=== PATIENT | female | born 1940 | race Caucasian/White ===

== ENCOUNTER → 2016-08-27 | Outpatient (CLI) | payer MEDICARE, BC ==
--- NOTE | 2016-08-30 08:40 | BD ---
EXAMINATION TYPE: MG DEXA axial skeleton. DATE OF EXAM: 08/27/2016 COMPARISON: CLINICAL HISTORY: 75-year-old female postmenopausal screening Height: 62.75 Weight: 200 FRAX RISK QUESTIONS: Alcohol (3 or more units per day): no Family History (Parent hip fracture): no Glucocorticoids (More than 3mos): not now (Ex: prednisone, prednisolone, methylprednisolone, dexamethasone, and hydrocortisone). History of Fracture in Adulthood: no Secondary Osteoporosis: 1. Type 1 Diabetes: no 2. Hyperthyroidism: no 3. Menopause before 45: no 4. Malnutrition: no 5. Chronic liver disease: no Rheumatoid Arthritis: patient thinks yes, but does not take medication for this Current Tobacco Use: no RISK FACTORS HISTORY OF: Family History of Osteoporosis: no Active: yes Diet low in dairy products/other sources of calcium: somewhat Postmenopausal woman: yes Take estrogen and/or progesterone medications: not now How long: hormonal contraceptives when younger for about one year Lost more than 2 inches in height since high school: no Frequent falls: no Poor Health: no Hyperparathyroidism: no Adrenal Insufficiency: no MEDICATIONS: Prednisone or other steroids: no Thyroid Medications: yes Which medication: generic synthroid How Long: since about age 32 Osteoporosis Medications: no Additional Medications: calcium & vitamin D, blood pressure meds EXAM MEASUREMENTS: Bone mineral densitometry was performed using the [employer] System. Bone mineral density as measured about the Lumbar spine is: ----- L1-L4(G/cm2): 1.099 T Score Values are as follows: ----- L2: -0.9 ----- L3: -0.8 ----- L4: -1.0 ----- L1-L4: -0.7 Bone mineral density has: Decreased -2.4% since study of: 08/23/2014 Bone mineral density about the R hip (g/cm2): 0.754 Bone mineral density about the L hip (g/cm2): 0.768 T Score values are as follows: -----R Neck: -2.0 -----L Neck: -1.9 -----R Total: -0.7 -----L Total: -0.3 Bone mineral density has: Decreased -2.2% since study of: 08/23/2014 IMPRESSION: Osteopenia as indicated by T score values in both hips. There is slightly increased risk of fracture and the patient may be considered for treatment. Re-Screen 2-5 years. NOTE: T-SCORE=SD OF THE YOUNG ADULT MEAN.
--- NOTE | 2016-09-01 08:24 | MM ---
Reason for exam: screening (asymptomatic). Last mammogram was performed 2 years ago. History: Patient is postmenopausal. Benign right US cyst aspiration of the right breast, June 05, 2008. Took hormonal contraceptives for 1 year beginning at age 22. Physical Findings: A clinical breast exam by your physician is recommended on an annual basis and results should be correlated with mammographic findings. MG 3D Screening Mammo W/Cad Bilateral CC and MLO view(s) were taken. Prior study comparison: August 23, 2014, bilateral MG screening mammo w CAD. There are scattered fibroglandular densities. Finding: There is a 7 mm circumscribed round mass located 4 cm from the nipple in the upper outer quadrant of the right breast. Increase in size since August 23, 2014. ASSESSMENT: Incomplete: need additional imaging evaluation, BI-RAD 0 RECOMMENDATION: Ultrasound of the right breast. [facility] will attempt to contact patient to return for ultrasound.
== END | disposition home or self-care (01) ==
LOC: RADMAMWWP 10:05
PROVIDERS: ATTEND Family Medicine
DX: Z12.31 Encounter for screening mammogram for malignant neoplasm of breast (principal); M85.851 Other specified disorders of bone density and structure, right thigh; M85.852 Other specified disorders of bone density and structure, left thigh; Z78.0 Asymptomatic menopausal state
CPT/HCPCS: 77080; 77063; G0202

== ENCOUNTER → 2016-09-13 | Outpatient (CLI) | payer MEDICARE ==
--- NOTE | 2016-09-13 11:25 | USB ---
Reason for exam: additional evaluation requested from abnormal screening. History: Patient is postmenopausal. Benign right US cyst aspiration of the right breast, June 05, 2008. Took hormonal contraceptives for 1 year beginning at age 22. Physical Findings: Nurse did not find any significant physical abnormalities on exam. US Breast Workup Limited RT Right breast ultrasound demonstrates a 0.6 x 0.3 x 0.6cm oval, cystic lesion at 9 o'clock. These results were verbally communicated with the patient and result sheet given to the patient on 09/13/16. ASSESSMENT: Benign, BI-RAD 2 RECOMMENDATION: Return to routine screening mammogram schedule for both breasts.
== END | disposition home or self-care (01) ==
LOC: RADUSWWP 10:22
PROVIDERS: ATTEND Family Medicine
DX: R92.8 Other abnormal and inconclusive findings on diagnostic imaging of breast (principal)

== ENCOUNTER → 2018-06-09 | Day surgery (SDC) | payer MEDICARE ==
[2018-06-07 13:36] VITALS: BMI 34.3
[~2018-06-09] MED LIST: LACTATED RINGERS 1,000 ML IV SCH; LIDOCAINE 1% 20 ML VIAL (10MG/ML) FOR IV START INTRADERMA ONE; PROPOFOL 10 MG/ML 20 ML VIAL IV ONE
--- NOTE | 2018-06-09 06:02 | P.GSHP ---
History of Present Illness H&P Date: 06/09/18 CHIEF COMPLAINT: GERD HISTORY OF PRESENT ILLNESS: The patient is a 77-year-old female who presents reports gastroesophageal reflux disease. Upper endoscopy was offered for further evaluation and management. PAST MEDICAL HISTORY: Please see list. PAST SURGICAL HISTORY: Please see list. MEDICATIONS: Please see list. ALLERGIES: Please see list. SOCIAL HISTORY: No illicit drug use FAMILY HISTORY: No reports of Crohn disease or ulcerative colitis. REVIEW OF ORGAN SYSTEMS: CONSTITUTIONAL: No reports of fevers or chills. GI: Denies any blood in stools or constipation. PHYSICAL EXAM: VITAL SIGNS: Stable GENERAL: Well-developed and pleasant in no acute distress. HEENT: No scleral icterus. Extraocular movements grossly intact. Moist buccal mucosa. NECK: Supple without lymphadenopathy. CHEST: Unlabored respirations. Equal bilateral excursions. CARDIOVASCULAR: Regular rate and rhythm. Distal 2+ pulses. ABDOMEN: Soft, nondistended. MUSCULOSKELETAL: No clubbing, cyanosis, or edema. ASSESSMENT: 1. Gastroesophageal reflux disease PLAN: 1. Recommend proceeding with an upper endoscopy Past Medical History Past Medical History: GERD/Reflux, Hypertension, Thyroid Disorder History of Any Multi-Drug Resistant Organisms: None Reported Past Surgical History: Hysterectomy, Joint Replacement, Orthopedic Surgery Additional Past Surgical History / Comment(s): RT TOTAL KNEE, FELIX CATARACTS, RT LEG VARICOSE VEIN, LEFT SHOULDER, D&C Past Anesthesia/Blood Transfusion Reactions: No Reported Reaction Smoking Status: Former smoker Medications and Allergies Home Medications Medication Instructions Recorded Confirmed Type Aspirin [Adult Low Dose Aspirin EC] 81 mg PO DAILY 06/07/18 06/07/18 History Calcium Carbonate [Calcium] 600 mg PO BID 06/07/18 06/07/18 History Cholecalciferol [Vitamin D3] 1,000 unit PO DAILY 06/07/18 06/07/18 History Levothyroxine Sodium [Synthroid] 75 mcg PO DAILY 06/07/18 06/07/18 History Losartan [Cozaar] 50 mg PO QAM 06/07/18 06/07/18 History Metoprolol Tartrate 25 mg PO HS 06/07/18 06/07/18 History Multivitamins, Thera [Multivitamin 1 tab PO DAILY 06/07/18 06/07/18 History (formulary)] [place]-3/Dha/Epa/Fish Oil [Fish Oil 1 each PO BID 06/07/18 06/07/18 History 500 mg Softgel] Pantoprazole Sodium 40 mg PO DAILY 06/07/18 06/07/18 History Allergies Allergy/AdvReac Type Severity Reaction Status Date / Time No Known Allergies Allergy Verified 06/07/18 13:27
[2018-06-09 10:05] VITALS: TEMP 96.5
--- NOTE | 2018-06-09 10:51 | P.PCN ---
Date of Procedure: 06/09/18 Description of Procedure: PREOPERATIVE DIAGNOSIS: Gastroesophageal reflux disease. POSTOPERATIVE DIAGNOSIS: Gastritis. Gastroesophageal reflux disease. Diaphragmatic hiatal hernia OPERATION: Esophagogastroduodenoscopy with biopsies along antrum. SURGEON: Lianne Modi MD ANESTHESIA: MAC. INDICATIONS: The patient is a 77-year-old female who presents with a history of reflux disease. Benefits and risks of the procedure were described. Informed consent was obtained. DESCRIPTION: The patient was brought into the endoscopy suite and laid in the left lateral decubitus position. An Olympus gastroscope was passed along the posterior oropharynx down to the distal esophagus where the squamocolumnar junction was encountered at 35 cm from the incisors. The stomach was entered and no bile reflux was found. Additional findings are listed below. Biopsies with cold forceps were obtained of the antrum. The first through third portion of the duodenum was examined and unremarkable. Retroflexion of the scope confirmed Hill grade 4 lower esophageal valve. The squamocolumnar junction demonstrated LA grade B erosive esophagitis. The stomach was desufflated. The patient tolerated the procedure well. FINDINGS: Squamocolumnar junction 35 cm from the incisors. Diaphragmatic hiatus at 38 cm. Hiatal hernia, 3 cm, paraesophageal hiatal hernia type II Hill grade 4 lower esophageal valve. LA grade B erosive esophagitis. No active duodenitis. Chronic gastritis RECOMMENDATIONS: Upper endoscopy as needed. Plan - Discharge Summary Discharge Rx Participant: No New Discharge Prescriptions: No Action Cholecalciferol [Vitamin D3] 1,000 unit PO DAILY Losartan [Cozaar] 50 mg PO QAM Multivitamins, Thera [Multivitamin (formulary)] 1 tab PO DAILY Levothyroxine Sodium [Synthroid] 75 mcg PO DAILY Pantoprazole Sodium 40 mg PO DAILY [place]-3/Dha/Epa/Fish Oil [Fish Oil 500 mg Softgel] 1 each PO BID Metoprolol Tartrate 25 mg PO HS Calcium Carbonate [Calcium] 600 mg PO BID Aspirin [Adult Low Dose Aspirin EC] 81 mg PO DAILY Discharge Medication List Aspirin [Adult Low Dose Aspirin EC] 81 mg PO DAILY 06/07/18 [History] Calcium Carbonate [Calcium] 600 mg PO BID 06/07/18 [History] Cholecalciferol [Vitamin D3] 1,000 unit PO DAILY 06/07/18 [History] Levothyroxine Sodium [Synthroid] 75 mcg PO DAILY 06/07/18 [History] Losartan [Cozaar] 50 mg PO QAM 06/07/18 [History] Metoprolol Tartrate 25 mg PO HS 06/07/18 [History] Multivitamins, Thera [Multivitamin (formulary)] 1 tab PO DAILY 06/07/18 [History] [place]-3/Dha/Epa/Fish Oil [Fish Oil 500 mg Softgel] 1 each PO BID 06/07/18 [History] Pantoprazole Sodium 40 mg PO DAILY 06/07/18 [History] Follow up Appointment(s)/Referral(s): Lianne Modi MD [STAFF PHYSICIAN] - 07/04/18 Patient Instructions/Handouts: *Surgery [facility] - (Anesthesia) Endoscopy Discharge Instructions, Hiatal Hernia (DC), Upper Endoscopy (DC) Discharge Disposition: HOME SELF-CARE
[2018-06-09 11:04] VITALS: BP 143/60; PULSE 70; RESP 16
== END | disposition home or self-care (01) ==
LOC: ORWHC2ENDO 09:42
PROVIDERS: ATTEND Surgery Plastic and Reconstructive Surgery
DX: K21.0 Gastro-esophageal reflux disease with esophagitis (principal); K29.50 Unspecified chronic gastritis without bleeding; K44.9 Diaphragmatic hernia without obstruction or gangrene; Z79.82 Long term (current) use of aspirin; I10 Essential (primary) hypertension; E07.9 Disorder of thyroid, unspecified; Z96.651 Presence of right artificial knee joint; Z98.42 Cataract extraction status, left eye; Z98.41 Cataract extraction status, right eye; Z87.891 Personal history of nicotine dependence; Z79.890 Hormone replacement therapy; Z79.899 Other long term (current) drug therapy
CPT/HCPCS: 88305; 43239; J2704

== ENCOUNTER → 2019-01-04 | Outpatient (CLI) | payer MEDICARE ==
--- NOTE | 2019-01-04 12:09 | BD ---
EXAMINATION TYPE: Axial Bone Density DATE OF EXAM: 01/04/2019 COMPARISON: 08.27.2016 CLINICAL HISTORY: 78 YR OLD FEMALE...ICD-10 CODE: Z78.0 POST MENOPAUSAL Height: 62.2 Weight: 229 FRAX RISK QUESTIONS: Family History (Parent hip fracture): NO FX RISK FACTORS HISTORY OF: Surgery to Spine FALL INJURY TO BACK, NO FX NOTED Family History of Osteoporosis: YES, MOTHER NO FX Postmenopausal woman: YES AT AGE 52 Lost more than 2 inches in height since high school: YES Hyperparathyroidism: NO Adrenal Insufficiency: NO MEDICATIONS: STEROIDS FOR COPD Thyroid Medications: YES, SYNTHROID, 20+ YRS Additional Medications: BP MEDS, REFLUX MEDS, CALCIUM AND VIT D, OSTEOARTHRITIS, STEROIDS FOR COPD Additional History: RT KNEE REPLACEMENT, EXAM MEASUREMENTS: Bone mineral densitometry was performed using the [employer] System. Bone mineral density as measured about the Lumbar spine is: ----- L1-L4(G/cm2): 1.358 T Score Values are as follows: ----- L1: 2.5 ----- L2: 2.2 ----- L3: 1.9 ----- L4: 0.0 ----- L1-L4: 1.5 Bone mineral density has: Increased 22.7% since study of: 08.27.2016 Bone mineral density about the R hip (g/cm2): 0.961 Bone mineral density about the L hip (g/cm2): 1.068 T Score values are as follows: -----R Neck: -1.7 -----L Neck: -1.4 -----R Total: -0.4 -----L Total: 0.5 Bone mineral density has: Increased 7.3% since study of: 08.27.2016 FRAX%s: THERE IS A 16.8% CHANCE FOR A MAJOR OSTEOPOROTIC FX AND A 4.1% FOR HIP.....PROBABILITY FOR FX IN 10 YRS TIME IMPRESSION: Osteopenia (T Score between -2.5 and -1). There is slightly increased risk of fracture and the patient may be considered for treatment. Re-Screen 2-5 years. NOTE: T-SCORE=SD OF THE YOUNG ADULT MEAN.
--- NOTE | 2019-01-05 11:56 | MM ---
Reason for exam: screening (asymptomatic). Last mammogram was performed 2 years and 4 months ago. History: Patient is postmenopausal. Benign right US cyst aspiration of the right breast, June 05, 2008. Took hormonal contraceptives for 1 year beginning at age 22. Physical Findings: A clinical breast exam by your physician is recommended on an annual basis and results should be correlated with mammographic findings. MG 3D Screening Mammo W/Cad Bilateral CC and MLO view(s) were taken. Prior study comparison: August 27, 2016, bilateral MG 3d screening mammo w/cad. August 23, 2014, bilateral MG screening mammo w CAD. The breast tissue is heterogeneously dense. This may lower the sensitivity of mammography. There is a 1.0 x 0.8cm spiculated left upper outer quadrant posterior depth mass 9-10cm from nipple. No suspicious abnormality on the right breast. ASSESSMENT: Incomplete: need additional imaging evaluation, BI-RAD 0 RECOMMENDATION: Special view mammogram and ultrasound of the left breast. [facility] will attempt to contact patient to return for supplemental views and ultrasound.
== END | disposition home or self-care (01) ==
LOC: RADMAMWWP 10:25
PROVIDERS: ATTEND Family Medicine
DX: Z12.31 Encounter for screening mammogram for malignant neoplasm of breast (principal); M85.80 Other specified disorders of bone density and structure, unspecified site; Z78.0 Asymptomatic menopausal state
CPT/HCPCS: 77063; 77067; 77080

== ENCOUNTER → 2019-01-15 | Outpatient (CLI) | payer MEDICARE ==
--- NOTE | 2019-01-16 09:20 | MM ---
Reason for exam: additional evaluation requested from abnormal screening. Last mammogram was performed less than 1 month ago. History: Patient is postmenopausal. Benign right US cyst aspiration of the right breast, June 05, 2008. Took hormonal contraceptives for 1 year beginning at age 22. Physical Findings: Nurse Summary: 0.5-1cm nodule in the left breast at 12-1 o'clock (nurse kp). MG 3D Work Up W/Cad LT Spot compression CC, spot compression MLO, and LM view(s) were taken of the left breast. Prior study comparison: January 04, 2019, bilateral MG 3d screening mammo w/cad. August 27, 2016, bilateral MG 3d screening mammo w/cad. There are scattered fibroglandular densities. Spiculated mass 2-3 o'clock position persists. These results were verbally communicated with the patient and result sheet given to the patient on 01/15/19. ASSESSMENT: Incomplete: need additional imaging evaluation, BI-RAD 0 RECOMMENDATION: Ultrasound of the left breast.
--- NOTE | 2019-01-16 09:25 | USB ---
Reason for exam: additional evaluation requested from abnormal screening. History: Patient is postmenopausal. Benign right US cyst aspiration of the right breast, June 05, 2008. Took hormonal contraceptives for 1 year beginning at age 22. US Breast Workup Limited LT Left complete breast ultrasound includes all four quadrants, the retroareolar region and axilla. Finding demonstrates a 1.1 x 1.2 x 1.2cm hypoechoic lesion at 3 o'clock, irregular shadowing mass, biopsy recommended and a 0.7 x 0.5 x 0.4cm oval possible debris filled cyst at 3 o'clock, depending on appearance at the time of biopsy, this may be biopsied as well. No axillary CAD. These results were verbally communicated with the patient and result sheet given to the patient on 01/15/19. ASSESSMENT: Highly suggestive of malignancy, BI-RAD 5 RECOMMENDATION: Surgical consultation and ultrasound core biopsy of the left breast. (possible 2 sites) Called Dr. Delacruz's office with mammographic findings and has scheduled an appointment for the patient for 01/31/19 at 2:[address] Cheek. Biopsy scheduled for 01/24/19 at 12:20. PRELIMINARY REPORT CALLED AND FAXED TO DR. CHEEK ON 01/16/19.
== END | disposition home or self-care (01) ==
LOC: RADMAMWWP 13:18
PROVIDERS: ATTEND Family Medicine
DX: R92.8 Other abnormal and inconclusive findings on diagnostic imaging of breast (principal)
CPT/HCPCS: 77065; 76642; G0279; 77061

== ENCOUNTER → 2019-01-23 | Day surgery (SDC) | payer MEDICARE ==
[2019-01-23 13:23] VITALS: RESP 16; TEMP 97.9
[2019-01-23 15:13] VITALS: BP 153/76; PULSE 71
--- NOTE | 2019-01-23 15:22 | USB ---
EXAMINATION TYPE: US biopsy breast VAD LT DATE OF EXAM: 01/23/2019 CLINICAL HISTORY: R92.8 ABNORMAL MAMMOGRAM. TECHNIQUE: Ultrasound guided core biopsy of 2 sites at the left 3:00 breast. COMPARISON: NONE FINDINGS: The procedure of ultrasound guided core biopsy was explained to the patient. Benefits, alternatives, and risks were discussed. An informed consent was then obtained. The patient was placed in supine positioning for imaging and for the procedure. The overlying skin was prepped and draped in usual sterile fashion. Lidocaine buffered with bicarbonate was used as anesthetic into the skin and subcutaneous tissue up to area of concern in the 2 sites at the left 3:00 breast. breast. Under ultrasound guidance, a 12-gauge vacuum assisted biopsy gun device was used to obtain 4 core samples from the left 3:00 zone C lesion. One core sample was obtained from the left 3:00 zone a lesion at which point it was no longer present. Microclip placed in each lesion and verification mammography. The patient tolerated the procedure well without any immediate complication. The patient was kept in the radiology department for short stay after the procedure and then discharged home in stable condition. IMPRESSION: Successful, uncomplicated ultrasound guided core biopsy of area of concern in the 2 sites at the left 3:00 breast. , full pathology results to follow. Pathology Results: Malignant A. LEFT BREAST, THREE O'CLOCK, SITE A, ULTRASOUND GUIDED CORE BIOPSY: Fibrocystic changes including apocrine cyst wall with columnar cell change, fibrosis, cysts and usual type ductal hyperplasia. B. LEFT BREAST, THREE O'CLOCK, SITE B/C, CORE BIOPSY: Invasive ductal carcinoma (Grade 2). See Surgical Pathology Cancer Case Summary and Comment Recommendation Surgical consult of the left breast. CHIN
--- NOTE | 2019-01-24 09:11 | MM ---
Reason for exam: additional evaluation requested from abnormal screening. Last mammogram was performed less than 1 month ago. History: Patient is postmenopausal. Benign right US cyst aspiration of the right breast, June 05, 2008. Took hormonal contraceptives for 1 year beginning at age 22. MG Diagnostic Mammo LT Wo CAD CC and MLO view(s) were taken of the left breast. Prior study comparison: January 15, 2019, left breast MG 3d work up w/cad LT. January 04, 2019, bilateral MG 3d screening mammo w/cad. ASSESSMENT: Post procedure mammogram for marker placement RECOMMENDATION: Ultrasound of the left breast in 6 months. PENDING PATHOLOGY RESULTS.
--- NOTE | 2019-01-30 09:44 | USB ---
US Breast Needle Core Addl LT Radiologist: Carlos Lepe M.D. Radiologis EXAMINATION TYPE: US biopsy breast VAD LT DATE OF EXAM: 01/23/2019 CLINICAL HISTORY: R92.8 ABNORMAL MAMMOGRAM. TECHNIQUE: Ultrasound guided core biopsy of 2 sites at the left 3:00 breast. COMPARISON: NONE FINDINGS: The procedure of ultrasound guided core biopsy was explained to the patient. Benefits, alternatives, and risks were discussed. An informed consent was then obtained. The patient was placed in supine positioning for imaging and for the procedure. The overlying skin was prepped and draped in usual sterile fashion. Lidocaine buffered with bicarbonate was used as anesthetic into the skin and subcutaneous tissue up to area of concern in the 2 sites at the left 3:00 breast. breast. Under ultrasound guidance, a 12-gauge vacuum assisted biopsy gun device was used to obtain 4 core samples from the left 3:00 zone C lesion. One core sample was obtained from the left 3:00 zone a lesion at which point it was no longer present. Microclip placed in each lesion and verification mammography. The patient tolerated the procedure well without any immediate complication. The patient was kept in the radiology department for short stay after the procedure and then discharged home in stable condition. IMPRESSION: Successful, uncomplicated ultrasound guided core biopsy of area of concern in the 2 sites at the left 3:00 breast. , full pathology results to follow. Pathology Results: Malignant A. LEFT BREAST, THREE O'CLOCK, SITE A, ULTRASOUND GUIDED CORE BIOPSY: Fibrocystic changes including apocrine cyst wall with columnar cell change, fibrosis, cysts and usual type ductal hyperplasia. B. LEFT BREAST, THREE O'CLOCK, SITE B/C, CORE BIOPSY: Invasive ductal carcinoma (Grade 2). See Surgical Pathology Cancer Case Summary and Comment RECOMMENDATION: Surgical consultation of the left breast. CHIN
== END ==
LOC: RADUSWWP 13:07
PROVIDERS: ATTEND Student in an Organized Health Care Education/Training Program
DX: C50.912 Malignant neoplasm of unspecified site of left female breast (principal); Z17.0 Estrogen receptor positive status [ER+]; Z78.0 Asymptomatic menopausal state
CPT/HCPCS: 88305; 88342; 88341; 77065; 19083; 19084; A4648; J2001

== ENCOUNTER → 2019-02-20 | Outpatient (CLI) | payer MEDICARE ==
--- NOTE | 2019-02-20 13:09 | XR ---
EXAMINATION TYPE: XR chest 2V DATE OF EXAM: 02/20/2019 COMPARISON: Prior chest x-ray April 02, 2013 HISTORY: Surgery 5 days ago with nausea productive cough. TECHNIQUE: Frontal and lateral views of the chest are obtained. FINDINGS: There is chronic parenchymal change without suspicious focal air space opacity, pleural ef fusion, or pneumothorax seen. The cardiac silhouette size is stable and enlarged. The osseous stru ctures are intact. IMPRESSION: Cardiomegaly and chronic parenchymal changes without new suspicious acute infiltrate cathy ntified.
== END | disposition home or self-care (01) ==
LOC: RADXRMAIN 12:18
PROVIDERS: ATTEND Family Medicine
DX: I51.7 Cardiomegaly (principal)
CPT/HCPCS: 71046

== ENCOUNTER → 2019-04-05 | Outpatient (CLI) | payer MEDICARE ==
--- NOTE | 2019-04-05 16:15 | CT ---
EXAMINATION TYPE: CT chest w con DATE OF EXAM: 04/05/2019 COMPARISON: Prior chest x-ray 02/20/2019 HISTORY: COUGH, GOING THROUGH RADIATION TREATMENT, BREAST CA CT DLP: 712 mGycm Automated exposure control for dose reduction was used. CONTRAST: CT scan of the chest is performed with IV Contrast, patient injected with 100 mL of Isovue 300. FINDINGS: LUNGS: The lungs show no concerning parenchymal mass or nodule identified. Emphysematous changes ar e present bilaterally. Subsegmental basilar atelectatic changes are noted right lung base. There is n o pleural effusion or pneumothorax seen. The tracheobronchial tree is patent. MEDIASTINUM: There are no greater than 1 cm hilar or mediastinal lymph nodes. No pericardial effusi on is seen. There is some mild coronary artery calcification. Heart is enlarged. AORTA: No additional significant abnormality is seen. For super aortic branch vessels are present. OTHER: There is compression deformity present at what is believed to be L2 with loss of height centr ally of approximately 50%, there is retropulsion noted at the superior endplate. Multilevel spondylos is present. Question small hiatal hernia. IMPRESSION: Emphysema, cardiomegaly. Possible osteoporotic compression fracture.
--- NOTE | 2019-04-05 18:28 | ECHOF ---
Referral Reason:R05 cough, I51.7 cardiomegaly MEASUREMENTS -------- HEIGHT: 165.1 cm WEIGHT: 90.7 kg BP: 137/70 RVIDd: 3.1 cm (< 3.3) IVSd: 1.2 cm (0.6 - 1.1) LVIDd: 3.7 cm (3.9 - 5.3) LVPWd: 1.3 cm (0.6 - 1.1) IVSs: 1.9 cm LVIDs: 2.8 cm LVPWs: 2.0 cm LA Diam: 3.5 cm (2.7 - 3.8) LAESV Index (A-L): 22.81 ml/m Ao Diam: 3.2 cm (2.0 - 3.7) AV Cusp: 2.1 cm (1.5 - 2.6) MV EXCURSION: 16.659 mm (> 18.000) MV EF SLOPE: 68 mm/s (70 - 150) EPSS: 0.6 cm MV E Lenin: 0.92 m/s MV DecT: 162 ms MV A Lenin: 1.11 m/s MV E/A Ratio: 0.84 RAP: 5.00 mmHg RVSP: 34.08 mmHg FINDINGS -------- Sinus rhythm. This was a technically good study. The left ventricular size is normal. There is mild concentric left ventricular hypertrophy. Overa ll left ventricular systolic function is normal with, an EF between 60 - 65 %. The right ventricle is normal in size. Normal LA size by volume 22+/-6 ml/m2. The right atrium is normal in size. Interatrial and interventricular septum intact. The aortic valve is trileaflet and appears structurally normal. The mitral valve is normal. Mild tricuspid regurgitation present. There is borderline pulmonary hypertension. The right ventr icular systolic pressure, as measured by Doppler, is 34.08mmHg. The pulmonic valve was not well visualized. The aortic root size is normal. Normal inferior vena cava with normal inspiratory collapse consistent with estimated right atrial pre ssure of 5 mmHg. There is no pericardial effusion. CONCLUSIONS -------- 1. Sinus rhythm. 2. This was a technically good study. 3. The left ventricular size is normal. 4. There is mild concentric left ventricular hypertrophy. 5. Overall left ventricular systolic function is normal with, an EF between 60 - 65 %. 6. The right ventricle is normal in size. 7. Normal LA size by volume 22+/-6 ml/m2. 8. The right atrium is normal in size. 9. Interatrial and interventricular septum intact. 10. The aortic valve is trileaflet and appears structurally normal. 11. The mitral valve is normal. 12. Mild tricuspid regurgitation present. 13. There is borderline pulmonary hypertension. 14. The right ventricular systolic pressure, as measured by Doppler, is 34.08mmHg. 15. The pulmonic valve was not well visualized. 16. The aortic root size is normal. 17. Normal inferior vena cava with normal inspiratory collapse consistent with estimated right atrial pressure of 5 mmHg. 18. There is no pericardial effusion. [employer]: Carisa Mulligan RDCS
== END | disposition home or self-care (01) ==
LOC: RADECHMAIN 13:56
PROVIDERS: ATTEND Family Medicine
DX: I07.1 Rheumatic tricuspid insufficiency (principal); J43.9 Emphysema, unspecified
CPT/HCPCS: 93306; 82565; 84520; 71260; 36415; Q9967

== ENCOUNTER → 2019-11-30 | Outpatient (CLI) | payer MEDICARE ==
--- NOTE | 2019-11-30 12:40 | CT ---
EXAMINATION TYPE: CT sinus wo con DATE OF EXAM: 11/30/2019 COMPARISON: CT brain August 21, 2012 HISTORY: Chronic sinusitis per order. Nasal drainage per patient. CT DLP: 592 mGycm. Automated Exposure Control for Dose Reduction was Utilized. TECHNIQUE: CT scan of the sinuses is performed without contrast, axial images are obtained, coronal r eformatted images are also reviewed. FINDINGS: The paranasal sinuses including the frontal, ethmoid, sphenoid, and maxillary sinuses bila terally are well-aerated without abnormal opacification. The ostiomeatal complex is patent bilateral ly on coronal image 27. Some nasal septal deviation is noted. Visualized portion of mastoid air cells show no abnormal opacification. The globes are intact bilate rally. Visualized brain parenchyma shows [id number] diffuse cerebral atrophy. IMPRESSION: The sinuses remain clear and the ostiomeatal complex is patent bilaterally.
== END | disposition home or self-care (01) ==
LOC: RADCTMAIN 12:12
PROVIDERS: ATTEND Otolaryngology
DX: J32.9 Chronic sinusitis, unspecified (principal)
CPT/HCPCS: 70486

== ENCOUNTER → 2021-01-09 | Outpatient (CLI) | payer MEDICARE ==
--- NOTE | 2021-01-09 15:37 | BD ---
EXAMINATION TYPE: Axial Bone Density DATE OF EXAM: 01/09/2021 COMPARISON: 01/04/2019 CLINICAL HISTORY: post menopausal with HRT Height: 62 IN Weight: 224 LBS FRAX RISK QUESTIONS: Secondary Osteoporosis: 3. Menopause before 45: PARTIAL HYST AGE 40 RISK FACTORS HISTORY OF: Active: YES Diet low in dairy products/other sources of calcium: YES Postmenopausal woman: PARTIAL HYST AGE 40 Take estrogen and/or progesterone medications: NOT NOW TOOK FOR 5 YEARS MEDICATIONS: Thyroid Medications: YES Which medication: Levothyroxine How Lon+ YEARS Additional Medications: CALCIUM, VIT D, LEVOTHYROXINE, MULTI VIT, LOSARTAN, ASPIRIN, PANTOPRAZOLE, FI SH OIL, METOPROLOL, OXYBUTONIN, LETROZOLE, FEROFINADINE, MENTELUKAST, MELOXICAM Additional History: BREAST CANCER WITH RADIATION EXAM MEASUREMENTS: Bone mineral densitometry was performed using the [employer]. Bone mineral density as measured about the Lumbar spine is: ----- L1-L4(G/cm2): 1.237 T Score Values are as follows: ----- L2: 1.7 ----- L3: -0.1 ----- L4: 0.0 ----- L1-L4: 0.5 Bone mineral density has: Decreased -6.4% since study of: 01/04/2019 Bone mineral density about the R hip (g/cm2): 0.737 Bone mineral density about the L hip (g/cm2): 0.796 T Score values are as follows: -----R Neck: -2.2 -----L Neck: -1.7 -----R Total: -0.7 -----L Total: -0.3 Bone mineral density has: Decreased -7.4% since study of: 01/04/2019 IMPRESSION: Osteopenia. NOTE: T-SCORE=SD OF THE YOUNG ADULT MEAN.
== END | disposition home or self-care (01) ==
LOC: RADBDWWP 09:14
PROVIDERS: ATTEND Internal Medicine Hematology & Oncology
DX: M85.89 Other specified disorders of bone density and structure, multiple sites (principal); Z78.0 Asymptomatic menopausal state; Z79.82 Long term (current) use of aspirin; Z79.899 Other long term (current) drug therapy
CPT/HCPCS: 77080

== ENCOUNTER → 2022-03-08 | Outpatient (CLI) | payer MEDICARE ==
--- NOTE | 2022-03-09 18:49 | MM ---
Reason for Exam: Screening (asymptomatic). Last mammogram was performed 1 year(s) and 5 month(s) ago. Patient History: Menarche at age 13. First Full-Term at age 18. Hysterectomy at age 40. Postmenopausal. Breast cancer, left, age 78. Hormonal Contraceptives for 1 year from age 22 until age 23. 2019, Lumpectomy on the Left side. 01/23/2019, Malignant Core Biopsy on the left side. 01/23/2019, Malignant Core Biopsy on the left side. 06/05/2008, Benign Cyst Aspiration on the right side. 2019, Radiation Therapy on the left side. Prior Study Comparison: 01/04/2019 Bilateral Screening Mammogram, [facility]. 01/15/2019 Left Diagnostic Mammogram, [facility]. 01/23/2019 Left Diagnostic Mammogram, [facility]. 10/24/2020 Bilateral MG diagnostic mammo w CAD FELIX - 2, [facility]. Tissue Density: There are scattered fibroglandular densities. Findings: Analyzed By CAD. Microclip lateral left breast from prior biopsy. No significant change from prior exams. Overall Assessment: Negative, BI-RAD 1 Management: Screening Mammogram of both breasts in 1 year. 1. Patient should continue monthly self breast exams. 2. A clinical breast exam by your physician is recommended on an annual basis. 3. This exam should not preclude additional follow-up of suspicious palpable abnormalities. Electronically signed and approved by: Micheal Enriquez M.D. Radiologist
== END | disposition home or self-care (01) ==
LOC: RADMAMWWP 14:50
PROVIDERS: ATTEND Internal Medicine Hematology & Oncology
DX: Z12.31 Encounter for screening mammogram for malignant neoplasm of breast (principal); Z78.0 Asymptomatic menopausal state; Z98.890 Other specified postprocedural states
CPT/HCPCS: 77063; 77067

== ENCOUNTER 2022-08-20 14:46 | Emergency (ER) | payer MEDICARE ==
[2022-08-20 15:03] VITALS: PULSE 72; TEMP 98
[2022-08-20 15:41] VITALS: RESP 18
--- NOTE | 2022-08-20 16:44 | XR ---
EXAMINATION TYPE: XR chest 2V DATE OF EXAM: 08/20/2022 4:39 PM COMPARISON: Chest radiographs from 02/20/2019 TECHNIQUE: XR chest 2V Frontal and lateral views of the chest. CLINICAL INDICATION:Female, 81 years old with history of fall, lt rib pain; FINDINGS: Lungs/Pleura: Prominent interstitial lung markings are seen scattered throughout the lungs with emily ening of the diaphragm and increased lucency of the lung apices. No evidence of focal consolidation, pneumothorax or pleural effusion. Pulmonary vascularity: Unremarkable. Heart/mediastinum: Cardiomediastinal silhouette is enlarged and stable. Musculoskeletal: No acute osseous pathology. No rib fracture definitely visualized. IMPRESSION: 1. No acute cardiopulmonary disease/process. 2. No displaced rib fracture definitely visualized. 3. Cardiomegaly. 4. COPD with Chronic interstitial change.
--- NOTE | 2022-08-20 16:44 | XR ---
EXAMINATION TYPE: XR wrist complete LT DATE OF EXAM: 08/20/2022 4:39 PM INDICATION: Patient age:Female; 81 years old; Reason for study: fall; COMPARISON: None TECHNIQUE: left wrist was examined in the. Frontal, navicular, lateral, and oblique. FINDINGS: No acute osseous pathology, joint dislocation, or joint effusion. No evidence of any soft tissue swelling is seen. IMPRESSION: No acute osseous pathology.
--- NOTE | 2022-08-20 16:45 | XR ---
EXAMINATION TYPE: XR knee complete RT DATE OF EXAM: 08/20/2022 4:39 PM INDICATION: Patient age:Female; 81 years old; Reason for study: fall; COMPARISON: None. TECHNIQUE: The Right knee(s) was examined in Frontal, lateral and oblique projections. FINDINGS: Status post total knee arthroplasty changes with hardware in appropriate alignment and in tact. No evidence of fracture. IMPRESSION: Status post total knee arthroplasty changes with hardware intact and appropriate alignment. No fractu res identified.
--- NOTE | 2022-08-20 16:48 | ED ---
General Adult HPI - General Chief complaint: Fall Stated complaint: Fall Time Seen by Provider: 08/20/22 15:16 Source: patient, RN notes reviewed Mode of arrival: ambulatory Limitations: no limitations - History of Present Illness Initial comments: 81-year-old presents emergency Department with chief complaint of fall. Patient states that yesterday she was walking down some stairs when she tripped and fell with her face landing on the grass. She states that the fall was unwitnessed and she is unsure if she lost consciousness. She states that she is on 81 mg aspirin but denies any other blood thinners. She reports overall aching pain with pain in her left wrist, right knee, left sided rib pain. She also admits to headache and nose pain. Denies fever, chills, nausea, vomiting. - Related Data Home Medications Medication Instructions Recorded Confirmed Aspirin [Adult Low Dose Aspirin EC] 81 mg PO DAILY 06/07/18 08/20/22 Calcium Carbonate [Calcium] 600 mg PO BID 06/07/18 08/20/22 Levothyroxine Sodium [Synthroid] 75 mcg PO DAILY 06/07/18 08/20/22 Losartan [Cozaar] 50 mg PO DAILY 06/07/18 08/20/22 Metoprolol Tartrate 25 mg PO HS 06/07/18 08/20/22 Multivitamins, Thera [Multivitamin 1 tab PO HS 06/07/18 08/20/22 (formulary)] Drummond-3/Dha/Epa/Fish Oil [Fish Oil 1 cap PO BID 06/07/18 08/20/22 500 mg Softgel] Pantoprazole Sodium 40 mg PO DAILY 06/07/18 08/20/22 oxyBUTYnin chloride [Ditropan XL] 10 mg PO DAILY 01/16/19 08/20/22 Cholecalciferol [Vitamin D3 (25 25 mcg PO DAILY 08/20/22 08/20/22 Mcg = 1000 Iu)] Fexofenadine HCl [Kirsty Allergy] 180 mg PO DAILY 08/20/22 08/20/22 Letrozole [Femara] 2.5 mg PO DAILY 08/20/22 08/20/22 Magnesium Oxide [Magnesium] 500 mg PO HS 08/20/22 08/20/22 Meloxicam [Mobic] 15 mg PO DAILY 08/20/22 08/20/22 Montelukast [Singulair] 10 mg PO HS 08/20/22 08/20/22 Risedronate Sodium [Actonel] 35 mg PO MO 08/20/22 08/20/22 Vitamin E (Dl,Tocopheryl Acet) 400 unit PO DAILY 08/20/22 08/20/22 [Vitamin E (400 Iu = 180 mg)] Allergies Allergy/AdvReac Type Severity Reaction Status Date / Time sulfamethoxazole Allergy Unknown Verified 08/20/22 18:03 [From Bactrim] trimethoprim [From Bactrim] Allergy Unknown Verified 08/20/22 18:03 Review of Systems ROS Statement: Those systems with pertinent positive or pertinent negative responses have been documented in the HPI. ROS Other: All systems not noted in ROS Statement are negative. Past Medical History Past Medical History: GERD/Reflux, Hypertension, Thyroid Disorder History of Any Multi-Drug Resistant Organisms: None Reported Past Surgical History: Hysterectomy, Joint Replacement, Orthopedic Surgery Additional Past Surgical History / Comment(s): RT TOTAL KNEE, FELIX CATARACTS, RT LEG VARICOSE VEIN, LEFT SHOULDER, D&C Past Anesthesia/Blood Transfusion Reactions: No Reported Reaction Past Psychological History: No Psychological Hx Reported Smoking Status: Never smoker Past Alcohol Use History: Rare Past Drug Use History: None Reported General Exam Limitations: no limitations General appearance: alert, in no apparent distress Head exam: Present: atraumatic, normocephalic, normal inspection Eye exam: Present: normal appearance, PERRL, EOMI. Absent: scleral icterus, conjunctival injection, periorbital swelling ENT exam: Present: mucous membranes moist, other (swelling and ecchymosis to nose with no obvious malalignment ) Neck exam: Present: normal inspection, full ROM. Absent: tenderness, meningismus, lymphadenopathy Respiratory exam: Present: wheezes (mild bilateral ) Cardiovascular Exam: Present: regular rate, normal rhythm, normal heart sounds. Absent: systolic murmur, diastolic murmur, rubs, gallop, clicks GI/Abdominal exam: Present: soft, normal bowel sounds. Absent: distended, tenderness, guarding, rebound, rigid Extremities exam: Present: normal inspection, full ROM, normal capillary refill. Absent: tenderness, pedal edema, joint swelling, calf tenderness Back exam: Present: normal inspection Neurological exam: Present: alert, oriented X3, CN II-XII intact Psychiatric exam: Present: normal affect, normal mood Skin exam: Present: warm, dry, intact, normal color. Absent: rash Course Vital Signs 08/20/22 08/20/22 08/20/22 14:59 15:39 17:16 Temperature 98.0 F Pulse Rate 72 72 Respiratory 20 18 18 Rate Blood Pressure 174/81 184/75 O2 Sat by Pulse 97 94 L Oximetry Medical Decision Making - Medical Decision Making Was pt. sent in by a medical professional or institution (, PA, PSYCHOLOGICAL TESTS SALES AGENT, urgent care, hospital, or fci...) When possible be specific @ -No Did you speak to anyone other than the patient for history (EMS, parent, family, police, friend...)? What history was obtained from this source @ -No Did you review nursing and triage notes (agree or disagree)? Why? @ -I reviewed and agree with nursing and triage notes Were old charts reviewed (outside hosp., previous admission, EMS record, old EKG, old radiological studies, urgent care reports/EKG's, fci records)? Report findings @ -No old charts were reviewed Differential Diagnosis (chest pain, altered mental status, abdominal pain women, abdominal pain men, vaginal bleeding, weakness, fever, dyspnea, syncope, headache, dizziness, GI bleed, back pain, seizure, CVA, palpatations, mental health, musculoskeletal)? @ -Differential Headache: Migraine, tension, cluster, carbon monoxide, central venous thrombosis, pension karma temporal arteritis, acute closure glaucoma, intercranial hemorrhage, mastoiditis, sinusitis, head injury, this is not meant to be an all-inclusive list. EKG interpreted by me (3pts min.). @ -None X-rays interpreted by me (1pt min.). @ -X-ray of the left wrist showed no evidence for acute fracture, x-ray right knee showed no evidence for acute fracture, chest x-ray showed no acute fracture, no acute cardiopulmonary process CT interpreted by me (1pt min.). @ -CT brain showed no acute intracranial process, CT facial bones showed no evidence for acute facial fracture U/S interpreted by me (1pt. min.). @ -None done What testing was considered but not performed or refused? (CT, X-rays, U/S, labs)? Why? @ -None What meds were considered but not given or refused? Why? @ -None Did you discuss the management of the patient with other professionals (professionals i.e. , PA, PSYCHOLOGICAL TESTS SALES AGENT, lab, RT, psych nurse, medical social worker, extrusion supervisor, teacher, information security officer, wrapper caser)? Give summary @ -No Was smoking cessation discussed for >3mins.? @ -No Was critical care preformed (if so, how long)? @ -No Were there social determinants of health that impacted care today? How? (Homelessness, low income, unemployed, alcoholism, drug addiction, transportation, low edu. Level, literacy, decrease access to med. care, residential, rehab)? @ -No Was there de-escalation of care discussed even if they declined (Discuss DNR or withdrawal of care, Hospice)? DNR status @ -No What co-morbidities impacted this encounter? (DM, HTN, Smoking, COPD, CAD, Cancer, CVA, ARF, Chemo, Hep., AIDS, mental health diagnosis, sleep apnea, morbid obesity)? @ -None Was patient admitted / discharged? Hospital course, mention meds given and route, prescriptions, significant lab abnormalities, going to OR and other pertinent info. @ -Discharged. Patient presented to the emergency department for chief complaint of fall that occurred yesterday. Patient is reporting overall aching body pains, but emphasized pain in her left-sided ribs, wrist, right knee. These areas were x-rayed, which showed no evidence for acute process. She is also complaining of a headache and CT brain was performed which showed no acute intracranial process. Patient fell on her nose and has ecchymosis and tenderness to the area. CT facial bones showed no evidence for acute fracture. Patient was advised of these findings, and on return precautions. Patient was given IM Toradol after the CT results came back along with Tylenol for her headache. Patient discharged in stable condition. Case discussed with my attending, Dr. Allen Undiagnosed new problem with uncertain prognosis? @ -No Drug Therapy requiring intensive monitoring for toxicity (Heparin, Nitro, Insulin, Cardizem)? @ -No Were any procedures done? @ -No Diagnosis/symptom? @ -Fall Acute, or Chronic, or Acute on Chronic? @ -Acute Uncomplicated (without systemic symptoms) or Complicated (systemic symptoms)? @ -uncomplicated Side effects of treatment? @ -No Exacerbation, Progression, or Severe Exacerbation? @ -No Poses a threat to life or bodily function? How? (Chest pain, [place], [place], pneumonia, PE, COPD, DKA, ARF, appy, cholecystitis, CVA, Diverticulitis, Homicidal, Suicidal, threat to staff... and all critical care pts) @ -No Disposition Clinical Impression: Fall Disposition: HOME SELF-CARE Condition: Stable Instructions (If sedation given, give patient instructions): Fall Prevention (ED) Additional Instructions: Alternate Tylenol and Motrin as needed for pain. Please follow up with your primary care provider. Return to the emergency department for new or worsening symptoms. Is patient prescribed a controlled substance at d/c from ED?: No Referrals: Kelsey Hernandez MD [Primary Care Provider] - 1-2 days Time of Disposition: 18:00
--- NOTE | 2022-08-20 16:59 | CT ---
EXAMINATION TYPE: CT brain cspine wo con, CT facial bones wo con CT DLP: 1391 mGycm, Automated exposure control for dose reduction was used. DATE OF EXAM: 08/20/2022 4:48 PM COMPARISON: 11/30/2019 CLINICAL INDICATION:Female, 81 years old with history of fall, hit head; Fall, hit head and face TECHNIQUE: Brain: Multiple axial CT images of the brain were obtained without IV contrast. Cspine: Axial CT images from the skull base to the inferior aspect of T2 we obtained without intraven ous contrast. Coronal and sagittal reformatted images were also reviewed. Facial: Axial imaging of the facial structures with sagittal and coronal reformats. FINDINGS: Brain: Extra-axial spaces: No abnormal extra-axial fluid collections. Ventricular system: Dilatation in proportion to cerebral atrophy. Cerebral parenchyma: Cerebral atrophy. No acute intraparenchymal hemorrhage or mass effect. The kimball -white junction is well differentiated. Cerebellum: Unremarkable. Mass effect: No evidence of midline shift. Intracranial vasculature: Atherosclerotic calcifications of the intracranial vessels. Soft tissues: Normal. Calvarium/osseous structures: No depressed skull fracture. Paranasal sinuses and mastoid air cells: Clear. Visualized orbits: Bilateral aphakia Cervical spine: Fracture: None. Osseous structures: Multilevel degenerative disc disease changes with endplate spurring and disc oste ophyte complex's. Vertebral alignment: Straightening of the spine. Spinal canal/Neural Foramina: Disc osteophyte complexes at C3-C4 with at least mild spinal canal sten osis. Facet joint uncovertebral joint arthropathy scattered throughout the cervical spine with varyin g degrees of neural foraminal stenosis. Neck soft tissues: Prevertebral soft tissues are within normal limits. Other: The airway is patent. Mild centrilobular emphysema changes in the lungs. Atherosclerosis of th e carotid bifurcations. Facial structures: No evidence of facial bone fracture. No significant paranasal sinus disease. The g lobes are intact. The orbits are within normal limits. No significant paranasal sinus disease. Incide ntal dental fillings are present with streak artifact. Temporal mandibular joint osteoarthrosis kim es with joint space narrowing and osteophyte formation. IMPRESSION: 1. No acute intracranial process. 2. No evidence of cervical spine fracture. 3. Moderate multilevel degenerative disc disease. 4. No evidence of facial bone fracture.
[2022-08-20 17:21] VITALS: BP 184/75
[2022-08-20] MEDS ORDERED: ACETAMINOPHEN TAB 325 MG TAB PO STA (17:26)
[2022-08-20] MEDS ORDERED: KETOROLAC 15 MG/ML 1 ML VIAL IM STA (17:26)
== END 2022-08-20 18:10 | disposition home or self-care (01) ==
LOC: EC 14:46
DX: M25.561 Pain in right knee (principal); J44.9 Chronic obstructive pulmonary disease, unspecified; K21.9 Gastro-esophageal reflux disease without esophagitis; I10 Essential (primary) hypertension; E07.9 Disorder of thyroid, unspecified; Z79.890 Hormone replacement therapy; Z79.899 Other long term (current) drug therapy; Z79.82 Long term (current) use of aspirin; Z88.2 Allergy status to sulfonamides; Z88.1 Allergy status to other antibiotic agents; W01.0XXA Fall on same level from slipping, tripping and stumbling without subsequent striking against object, initial encounter; Y93.01 Activity, walking, marching and hiking
CPT/HCPCS: 73110; 73562; 71046; 72125; 70486; 70450; 99284; 96372; J1885

== ENCOUNTER → 2023-01-10 | Outpatient (CLI) | payer MEDICARE ==
--- NOTE | 2023-01-10 12:57 | BD ---
EXAMINATION TYPE: Axial Bone Density DATE OF EXAM: 01/10/2023 CLINICAL HISTORY: 82 years old Female. ICD-10 CODE: C50.412MALIG NEOPLASM OF UPPER-OUTER QUADRANT OF L Height: 5 ft 1 /2 in Weight: 224 FRAX RISK QUESTIONS: Alcohol (3 or more units per day): no Family History (Parent hip fracture): no Glucocorticoids (More than 3mos): no (Ex: prednisone, prednisolone, methylprednisolone, dexamethasone, and hydrocortisone). History of Fracture in Adulthood: yes Secondary Osteoporosis: 1. Type 1 Diabetes: no 2. Hyperthyroidism: no 3. Menopause before 45: yes 4. Malnutrition: no 5. Chronic liver disease: no Rheumatoid Arthritis: no Current Tobacco Use: no RISK FACTORS HISTORY OF: Spine Fracture: lumbar When: approx 5 years ago Surgery to Spine/Hip(right/left)/Wrist (right/left): no Family History of Osteoporosis: no Active: yes Diet low in dairy products/other sources of calcium: no Postmenopausal woman: yes Take estrogen and/or progesterone medications: no Lost more than 2 inches in height since high school: yes Frequent falls: no Poor Health: good Hyperparathyroidism: no Adrenal Insufficiency: no MEDICATIONS: Thyroid Medications: yes Which medication: levothyroxine How Long: approx 50 years Osteoporosis Medications: yes Which medication: Risedronate How Lon years Additional Medications: risedronate, levothyroxine, losartan, Pantoprazole, aspirin, metoprolol, Oxyb utynin, letrozole, Terfenadine, montelukast, meloxicam, Additional History: breast cancer radiation EXAM MEASUREMENTS: Bone mineral densitometry was performed using the [employer]. Bone mineral density as measured about the Lumbar spine is: ----- L1-L4(G/cm2): 1.206 T Score Values are as follows: ----- L1: 1.2 ----- L2: 1.2 ----- L3: -0.8 ----- L4: -0.3 ----- L1-L4: 0.2 Z Score Values are as follows: ----- L1: 1.9 ----- L2: 1.9 ----- L3: -0.1 ----- L4: 0.3 ----- L1-L4: 0.9 Bone mineral density has: decreased -2.5 % since study of: 2020 Bone mineral density about the R hip (g/cm2): 0.779 Bone mineral density about the L hip (g/cm2): 0.721 T Score values are as follows: -----R Neck: -1.9 -----L Neck: -2.3 -----R Total: -0.7 -----L Total: -0.2 Z Score values are as follows: -----R Neck: -0.5 -----L Neck: -0.9 -----R Total: 0.5 -----L Total: 1.0 Bone mineral density has: increased 1.3 % since study of: 2020 FRAX%s: The graph provided illustrates a 15.4 % chance for a major osteoporotic fx and a 4.7 % chance for the hips probability for fx in 10 years time. IMPRESSION: Osteopenia (T Score between -2.5 and -1). There is slightly increased risk of fracture and the patient may be considered for treatment. Re-Screen 2-5 years. NOTE: T-SCORE=SD OF THE YOUNG ADULT MEAN.
== END | disposition home or self-care (01) ==
LOC: RADBDWWP 11:17
PROVIDERS: ATTEND Internal Medicine Hematology & Oncology
DX: C50.412 Malignant neoplasm of upper-outer quadrant of left female breast (principal); M85.89 Other specified disorders of bone density and structure, multiple sites; Z78.0 Asymptomatic menopausal state
CPT/HCPCS: 77080

== ENCOUNTER → 2023-03-07 | Outpatient (CLI) | payer MEDICARE ==
--- NOTE | 2023-03-07 15:47 | XR ---
EXAMINATION TYPE: XR chest 2V DATE OF EXAM: 03/07/2023 COMPARISON: 08/20/2022 HISTORY: 82-year-old female R06.02, R05.2 TECHNIQUE: Frontal and lateral views FINDINGS: Heart borderline to mildly enlarged. Hyperinflation. No consolidation or pleural effusion. IMPRESSION: Borderline to mild cardiomegaly. COPD. No definite acute process.
== END | disposition home or self-care (01) ==
LOC: RADXRMAIN 15:28
PROVIDERS: ATTEND Family Medicine
DX: J44.9 Chronic obstructive pulmonary disease, unspecified (principal); I51.7 Cardiomegaly
CPT/HCPCS: 71046

== ENCOUNTER → 2023-03-09 | Outpatient (CLI) | payer MEDICARE ==
--- NOTE | 2023-03-11 16:15 | MM ---
Reason for Exam: Screening (asymptomatic). Last screening mammogram was performed 12 month(s) ago. Patient History: Menarche at age 13. First Full-Term at age 18. Hysterectomy at age 40. Postmenopausal. Breast cancer, left, age 78. Hormonal Contraceptives for 1 year from age 22 until age 23. 2019, Lumpectomy on the Left side. 01/23/2019, Malignant Core Biopsy on the left side. 01/23/2019, Malignant Core Biopsy on the left side. 06/05/2008, Benign Cyst Aspiration on the right side. 2019, Radiation Therapy on the left side. Prior Study Comparison: 01/23/2019 Left Diagnostic Mammogram, [facility]. 10/24/2020 Bilateral MG diagnostic mammo w CAD FELIX - 2, [facility]. 03/08/2022 Bilateral MG 3D screening mammo w/cad, [facility]. Tissue Density: There are scattered fibroglandular densities. Findings: Analyzed By CAD. Pattern appears stable. Core markers within the left breast. Focal asymmetry is in the posterior left breast. Scar marker is on the left breast. No suspicious groups of microcalcifications, spiculated or lobular masses, architectural distortion or other secondary signs of malignancy are mammographically apparent. Overall Assessment: Benign, BI-RAD 2 Management: Screening Mammogram of both breasts in 1 year. A negative mammogram report should not preclude additional follow up of suspicious palpable abnormalities. Patient should continue monthly self breast exam. A clinical breast exam by your physician is recommended on an annual basis and results should be correlated with mammographic findings. Electronically signed and approved by: Jackson Hui D.O. Radiologis
== END | disposition home or self-care (01) ==
LOC: RADMAMWWP 11:14
PROVIDERS: ATTEND Internal Medicine Hematology & Oncology
DX: Z12.31 Encounter for screening mammogram for malignant neoplasm of breast (principal); C50.412 Malignant neoplasm of upper-outer quadrant of left female breast; I10 Essential (primary) hypertension; M85.9 Disorder of bone density and structure, unspecified; E03.9 Hypothyroidism, unspecified; Z71.3 Dietary counseling and surveillance; Z78.0 Asymptomatic menopausal state
CPT/HCPCS: 77063; 77067

== ENCOUNTER 2024-01-01 14:05 | Inpatient (IN) | payer MEDICARE ==
--- NOTE | 2024-01-01 14:35 | ED ---
General Adult HPI - General Chief complaint: Dizziness Stated complaint: Poss. stroke Time Seen by Provider: 01/01/24 14:17 Source: patient Mode of arrival: ambulatory Limitations: no limitations - History of Present Illness Initial comments: Dictation was produced using icomply dictation software. please excuse any grammatical, word or spelling errors. Chief Complaint: 83-year-old female with dizziness History of Present Illness: Patient is 83-year-old female presents to the emergency department dizziness. States that she woke up dizzy yesterday and today. Patient was worried and told her family member who suffers from hypertension. Patient has history of hypertension. She decided to check her blood pressure was found to be elevated. She went to the urgent care where she was told she should come to the ER. Patient [place] any pain complaints. Denies any headache. No nausea vomiting. No chest pain numbness STEMI paresthesias. The ROS documented in this emergency department record has been reviewed and confirmed by me. Those systems with pertinent positive or negative responses have been documented in the HPI. All other systems are other negative and/or noncontributory. - Related Data Home Medications Medication Instructions Recorded Confirmed Aspirin [Adult Low Dose Aspirin EC] 81 mg PO DAILY 06/07/18 08/20/22 Calcium Carbonate [Calcium] 600 mg PO BID 06/07/18 08/20/22 Levothyroxine Sodium [Synthroid] 75 mcg PO DAILY 06/07/18 08/20/22 Losartan [Cozaar] 50 mg PO DAILY 06/07/18 08/20/22 Metoprolol Tartrate 25 mg PO HS 06/07/18 08/20/22 Multivitamins, Thera [Multivitamin 1 tab PO HS 06/07/18 08/20/22 (formulary)] [place]-3/Dha/Epa/Fish Oil [Fish Oil 1 cap PO BID 06/07/18 08/20/22 500 mg Softgel] Pantoprazole Sodium 40 mg PO DAILY 06/07/18 08/20/22 oxyBUTYnin chloride [Ditropan XL] 10 mg PO DAILY 01/16/19 08/20/22 Cholecalciferol [Vitamin D3 (25 25 mcg PO DAILY 08/20/22 08/20/22 Mcg = 1000 Iu)] Fexofenadine HCl [Kristy Allergy] 180 mg PO DAILY 08/20/22 08/20/22 Letrozole [Femara] 2.5 mg PO DAILY 08/20/22 08/20/22 Magnesium Oxide [Magnesium] 500 mg PO HS 08/20/22 08/20/22 Meloxicam [Mobic] 15 mg PO DAILY 08/20/22 08/20/22 Montelukast [Singulair] 10 mg PO HS 08/20/22 08/20/22 Risedronate Sodium [Actonel] 35 mg PO MO 08/20/22 08/20/22 Vitamin E (Dl,Tocopheryl Acet) 400 unit PO DAILY 08/20/22 08/20/22 [Vitamin E (400 Iu = 180 mg)] Allergies Allergy/AdvReac Type Severity Reaction Status Date / Time sulfamethoxazole Allergy Unknown Verified 01/01/24 14:11 [From Bactrim] trimethoprim [From Bactrim] Allergy Unknown Verified 01/01/24 14:11 Review of Systems ROS Statement: Those systems with pertinent positive or pertinent negative responses have been documented in the HPI. ROS Other: All systems not noted in ROS Statement are negative. Past Medical History Past Medical History: GERD/Reflux, Hypertension, Thyroid Disorder History of Any Multi-Drug Resistant Organisms: None Reported Past Surgical History: Hysterectomy, Joint Replacement, Orthopedic Surgery Additional Past Surgical History / Comment(s): RT TOTAL KNEE, FELIX CATARACTS, RT LEG VARICOSE VEIN, LEFT SHOULDER, D&C Past Anesthesia/Blood Transfusion Reactions: No Reported Reaction Past Psychological History: No Psychological Hx Reported Smoking Status: Never smoker Past Alcohol Use History: Rare Past Drug Use History: None Reported General Exam - General Exam Comments Initial Comments: PHYSICAL EXAM: General Impression: Alert and oriented x3, not in acute distress HEENT: Normocephalic atraumatic, extra-ocular movements intact, pupils equal and reactive to light bilaterally, mucous membranes moist. Cardiovascular: Heart regular rate and rhythm Chest: Able to complete full sentences, no retractions, no tachypnea Abdomen: abdomen soft, non-tender, non-distended, no organomegaly Musculoskeletal: Pulses present and equal in all extremities, no peripheral edema Motor: no focal deficits noted Neurological: CN II-XII grossly intact, no focal motor or sensory deficits noted Skin: Intact with no visualized rashes Psych: Normal affect and mood Limitations: no limitations Course Vital Signs 01/01/24 14:09 Temperature 98.3 F Pulse Rate 64 Respiratory 16 Rate Blood Pressure 190/72 O2 Sat by Pulse 96 Oximetry EKG Findings - EKG Comments: EKG Findings:: My EKG interpretation: Ventricular rate 62, sinus rhythm, left bundle branch block,. 187, QRS 149, QTc 427. No AK prolongation, no QTC prolongation, no ST or T-wave changes noted. Overall, this EKG is unremarkable Medical Decision Making - Medical Decision Making Was pt. sent in by a medical professional or institution (, PA, CAR DEALER, urgent care, hospital, or residential...) When possible be specific @ -No Did you speak to anyone other than the patient for history (EMS, parent, family, police, friend...)? What history was obtained from this source @ -No Did you review nursing and triage notes (agree or disagree)? Why? @ -I reviewed and agree with nursing and triage notes Were old charts reviewed (outside hosp., previous admission, EMS record, old EKG, old radiological studies, urgent care reports/EKG's, residential records)? Report findings @ -No old charts were reviewed Differential Diagnosis (chest pain, altered mental status, abdominal pain women, abdominal pain men, vaginal bleeding, musculoskeletal, weakness, fever, dyspnea, syncope, headache, dizziness, GI bleed, back pain, seizure, CVA, palpatations, mental health)? @ -Differential Dizziness: Benign paroxysmal positional Vertigo, Meniere's disease, otitis media, acoustic neuroma, vertebrobasilar insufficiency, cerebellar stroke, encephalitis, hypovolemic, arrhythmia, coronary artery syndrome, anemia, this is not meant to be an all-inclusive list EKG interpreted by me (3pts min.). @ -See above X-rays interpreted by me (1pt min.). @ -None done CT interpreted by me (1pt min.). @ -CT brain shows no acute processes U/S interpreted by me (1pt. min.). @ -None done What testing was considered but not performed or refused? (CT, X-rays, U/S, labs)? Why? @ -None What meds were considered but not given or refused? Why? @ -None Was smoking cessation discussed for >3mins.? @ -No Were there social determinants of health that impacted care today? How? (Ho melessness, low income, unemployed, alcoholism, drug addiction, transportation, low edu. Level, literacy, decrease access to med. care, m[facility], rehab)? @ -No Was there de-escalation of care discussed even if they declined (Discuss DNR or withdrawal of care, Hospice)? DNR status @ -No What co-morbidities impacted this encounter? (DM, HTN, Smoking, COPD, CAD, Cancer, CVA, ARF, Chemo, Hep., AIDS, mental health diagnosis, sleep apnea, morbid obesity)? @ -None Was patient admitted / discharged? Hospital course, mention meds given and route, prescriptions, significant lab abnormalities, going to OR and other pertinent info. @ -83-year-old female presents with dizziness and hypertension. Patient does not feel like the room is spinning however she has constant dizziness despite movements. Vital signs shows blood pressure 190/72. Laboratory evaluation obtained labs are within acceptable limits except 16 white blood cells in the urine. Patient given [address] brain is negative. Clinical presentation is suspicious for posterior CVA. Pending CT angio of the head and neck. Patient will be admitted with consultation to neurology. Did you discuss the management of the patient with other professionals (professionals i.e. , PA, CAR DEALER, lab, RT, psych nurse, mental health social worker, extracting machine operator, teacher, landcare officer, upper caser)? Give summary @ -Case discussed with hospitalist for admission Was critical care preformed (if so, how long)? @ -No Undiagnosed new problem with uncertain prognosis? @ -No Drug Therapy requiring intensive monitoring for toxicity (Heparin, Nitro, Ins ulin, Cardizem)? @ -No Were any procedures done? @ -No Diagnosis/symptom? Acute, or Chronic, or Acute on Chronic? Uncomplicated (without systemic symptoms) or Complicated (systemic symptoms)? @ -Dizziness Side effects of treatment? @ -No Exacerbation, Progression, or Severe Exacerbation? @ -No Poses a threat to life or bodily function? How? (Chest pain, USA, IA, pneumonia, PE, COPD, DKA, ARF, appy, cholecystitis, CVA, Diverticulitis, Homicidal, Suicidal, threat to staff... and all critical care pts) @ -yes - Lab Data Result diagrams: 01/01/24 14:37 01/01/24 14:37 Lab Results 01/01/24 01/01/24 01/01/24 Range/Units 14:37 14:37 14:37 WBC 7.4 (3.8-10.6) k/uL RBC 4.77 (3.80-5.40) m/uL Hgb 14.7 (11.4-16.0) gm/dL Hct 46.0 (34.0-46.0) % MCV 96.3 (80.0-100.0) fL MCH 30.9 (25.0-35.0) pg MCHC 32.0 (31.0-37.0) g/dL RDW 12.7 (11.5-15.5) % Plt Count 271 (150-450) k/uL MPV 8.3 Neutrophils % 66 % Lymphocytes % 20 % Monocytes % 7 % Eosinophils % 3 % Basophils % 1 % Neutrophils # 4.9 (1.3-7.7) k/uL Lymphocytes # 1.5 (1.0-4.8) k/uL Monocytes # 0.5 (0-1.0) k/uL Eosinophils # 0.2 (0-0.7) k/uL Basophils # 0.1 (0-0.2) k/uL Sodium 140 (137-145) mmol/L Potassium 4.5 (3.5-5.1) mmol/L Chloride 106 (98-107) mmol/L Carbon Dioxide 30 (22-30) mmol/L Anion Gap 4 mmol/L BUN 14 (7-17) mg/dL Creatinine 0.83 (0.52-1.04) mg/dL Est GFR (CKD-EPI)AfAm 77 (>60 ml/min/1.73 sqM) Est GFR (CKD-EPI)NonAf 67 (>60 ml/min/1.73 sqM) Glucose 96 (74-99) mg/dL Calcium 10.4 H (8.4-10.2) mg/dL Urine Color Colorless Urine Appearance Clear (Clear) Urine pH 6.5 (5.0-8.0) Ur Specific [place] 1.003 (1.001-1.035) Urine Protein Negative (Negative) Urine Glucose (UA) Negative (Negative) Urine Ketones Negative (Negative) Urine Blood Negative (Negative) Urine Nitrite Negative (Negative) Urine Bilirubin Negative (Negative) Urine Urobilinogen <2.0 (<2.0) mg/dL Ur Leukocyte Esterase Moderate H (Negative) Urine RBC <1 (0-5) /hpf Urine WBC 16 H (0-5) /hpf Ur Squamous Epith Cells <1 (0-4) /hpf Urine Bacteria Many H (None) /hpf Disposition Clinical Impression: Dizziness Disposition: ADMITTED IP TO THIS HOSP Condition: Fair Referrals: Kelsey Hernandez MD [Primary Care Provider] - 1-2 days Decision Time: 15:42
[2024-01-01 15:04] LABS: Basophils # (A) 0.1 k/uL (0-0.2); Basophils % (A) 1 %; Eosinophils # (A) 0.2 k/uL (0-0.7); Eosinophils % (A) 3 %; HGB 14.7 gm/dL (11.4-16.0); Lymphocytes # (A) 1.5 k/uL (1.0-4.8); Lymphocytes % (A) 20 %; MCH 30.9 pg (25.0-35.0); MCV 96.3 fL (80.0-100.0); Mean Platelet Volume 8.3; Monocytes # (A) 0.5 k/uL (0-1.0); Monocytes % (A) 7 %; Neutrophils # (A) 4.9 k/uL (1.3-7.7); Neutrophils % (A) 66 %; Platelet Count 271 k/uL (150-450); RBC 4.77 m/uL (3.80-5.40); RDW 12.7 % (11.5-15.5); WBC 7.4 k/uL (3.8-10.6)
[2024-01-01 15:08] LABS: Appearance,Urine Clear (Clear); Bacteria,Urine Many /hpf; Bilirubin,Urine Negative (Negative); Blood,Urine Negative (Negative); Color,Urine Colorless; Glucose,Urine (UA) Negative (Negative); Ketones,Urine Negative (Negative); Leukocyte Esterase,Urine Moderate (Negative); Nitrite,Urine Negative (Negative); PH, Urine 6.5 (5.0-8.0); Protein,Urine Negative (Negative); RBC,Urine <1 /hpf (0-5); Specific Gravity,Urine 1.003 (1.001-1.035); Squamous Epithelial Cell,Urine <1 /hpf (0-4); Urobilinogen,Urine <2.0 mg/dL (<2.0); WBC,Urine 16 /hpf (0-5)
[2024-01-01 15:18] LABS: African American GFR (CKD) 77 (>60 ml/min/1.73 sqM); Anion Gap 4 mmol/L; Blood Urea Nitrogen 14 mg/dL (7-17); Calcium 10.4 mg/dL (8.4-10.2); Carbon Dioxide 30 mmol/L (22-30); Chloride 106 mmol/L (98-107); Glucose 96 mg/dL (74-99); Non-African American GFR(CKD) 67 (>60 ml/min/1.73 sqM); Potassium 4.5 mmol/L (3.5-5.1); Sodium 140 mmol/L (137-145)
--- NOTE | 2024-01-01 15:23 | CT ---
EXAMINATION TYPE: CT brain wo con DATE OF EXAM: 01/01/2024 COMPARISON: 08/20/2022 INDICATION: dizziness and elevated BP DLP: 1125.4 mGycm, Automated exposure control for dose reduction was used. CONTRAST: None CT of the brain is performed utilizing 3 mm thick sections through the posterior fossa and 3 mm thick sections through the remaining calvarium. Study is performed within 24 hours of arrival to the hosp ital. No abnormal hyperdensity is present to suggest an acute intracranial hemorrhage. No mass lesion is evident. No acute infarcts are evident. Mild stable. Chronic white matter ischemic type changes are present. Ventricles and sulci are mildly prominent for the patient age. Extra-axial spaces are prominent Paranasal sinuses and mastoid air cells within the vtrne-mm-mclg are clear. IMPRESSION: 1. No acute intracranial process. Follow up MRI can be performed as clinically indicated. 2. Chronic appearing periventricular white matter ischemic changes. Findings are stable from comparis on. [facility], Workstation: [facility], 01/01/2024 3:20 PM
[2024-01-01] MEDS ORDERED: NALOXONE 0.4 MG/ML 1 ML VIAL IV PRN (15:39)
[2024-01-01] MEDS: ASPIRIN 81 MG PO STA (16:32)
[2024-01-01] MEDS: SODIUM CHLORIDE 0.9% 1,000 ML IV SCH (16:32)
[2024-01-01] MEDS: cefTRIAXone IN SWFI 1,000 MG/10 ML SYRINGE IVP STA (16:33)
--- NOTE | 2024-01-01 16:33 | CT ---
EXAMINATION TYPE: CT angio head neck DATE OF EXAM: 01/01/2024 HISTORY: possible posterior cva COMPARISON: 01/01/[address] DLP: 622.2 mGycm. Automated Exposure Control for Dose Reduction was Utilized. TECHNIQUE: CTA scan of the neck is performed with IV Contrast, patient injected with 65 mL of Isovue 370, axial images are obtained, coronal and sagittal reformatted images are reviewed. Three-D recons tructed images are created on an independent workstation and reviewed. Source images are reviewed. FINDINGS: Carotid/Vascular Structures: There is a 3 vessel arch. Common carotid arteries bifurcate into internal and external carotid arteries without significant amy w limiting stenosis. Mild vascular calcification without flow limiting stenosis in the carotid bifurc ations. Vertebral arteries are codominant. Internal carotid arteries and vertebral arteries are patent to the skull base. Cervical of [place]: Vertebral basilar system appears normal. Posterior cerebral vasculature is unrema rkable. Internal carotid arteries bifurcate normally into A1 and M1 segments. A2 segments are normal. The anterior communicating artery is absent. The right posterior communicating artery is patent. The left posterior communicating artery is patent. Posterior cerebral vasculature appears normal. No abrupt cut off identified. IMPRESSION: 1. No flow-limiting stenosis bilateral carotid bifurcations. 2. Normal [place] NASCET criteria was used in interpretation of this exam? [facility], , 01/01/2024 4:30 PM
[2024-01-01] MEDS: METOPROLOL TARTRATE 25 MG TAB PO SCH (22:43)
[2024-01-01] MEDS: MONTELUKAST 10 MG TAB PO SCH (22:43)
[2024-01-01] MEDS: PANTOPRAZOLE 40 MG TABLET PO SCH (22:43)
[2024-01-02] MEDS: LEVOTHYROXINE 75 MCG TAB PO SCH (06:18)
[2024-01-02] MEDS: OXYBUTYNIN 10 MG TAB.ER.24 PO SCH (08:30)
[2024-01-02] MEDS: EZETIMIBE 10 MG TAB PO SCH (08:31)
[2024-01-02] MEDS: LOSARTAN 50 MG TAB PO SCH (08:31)
[2024-01-02] MEDS: LETROZOLE 2.5 MG TAB PO SCH (08:31)
[2024-01-02] MEDS: MAGNESIUM OXIDE 400 MG TAB PO SCH (08:31)
[2024-01-02] MEDS: ASPIRIN 81 MG PO SCH (09:05)
[2024-01-02] MEDS: ENOXAPARIN 40 MG/0.4 ML SYRINGE SQ SCH (09:06)
--- NOTE | 2024-01-02 09:06 | P.HPIM ---
History of Present Illness H&P Date: 01/02/24 Amy Tijerina, is an 83-year-old female who presented to [facility] emergency room with a chief complaint of severe dizziness, patient stated that she woke up on Tuesday morning with severe dizziness, and her symptom has been worsening since then, patient stated that she felt that she was falling backward, on Tuesday patient decided to come to emergency room for further evaluation. She was evaluated in the emergency room vital examination on presentation revealed a temperature of 98.3 pulse 64 respiration 16 blood pressure 190/72 pulse ox 96% on room air Laboratory data revealed a white blood count of 7.4 hemoglobin 14.7 platelet count 271 sodium 140 potassium 4.5 chloride 106 CO2 30 BUN 14 creatinine 0.83 calcium 10.4 urine analysis was positive for leukocyte esterase and 16 white blood cells and many bacteria. Testing in the emergency room revealed EKG done in the emergency room revealed sinus rhythm with left bundle branch block, CT scan of the brain revealed no acute intracranial process, with chronic appearing periventricular white matter ischemic changes. CT angiogram of the neck and brain revealed no flow-limiting stenosis in the bilateral carotid bifurcation, and normal [place]. Patient was admitted to medical floor for further evaluation and treatment Past medical history is significant for history of hypertension, history of hyperlipidemia, history of hypothyroidism, history of osteoarthritis, history of osteoporosis, history of gastroesophageal reflux disease, history of urinary incontinence, for which patient takes oxybutynin 10 mg daily, she is stating she has been on this medication for 4 years. On review of systems patient is alert and oriented x 3 in no apparent distress, there is no fever or chills no headache, no chest pain no shortness of breath no cough, no nausea or vomiting no abdominal pain no diarrhea no blood in the stools, she has frequency with urination and some urgency and mild incontinence, there is no weakness or numbness in any of the extremities, there is no change in vision speech or gait. Past Medical History Past Medical History: Cancer, COPD, GERD/Reflux, Hypertension, Thyroid Disorder Additional Past Medical History / Comment(s): breast Cancer, overactive bladder History of Any Multi-Drug Resistant Organisms: None Reported Past Surgical History: Hysterectomy, Joint Replacement, Orthopedic Surgery Additional Past Surgical History / Comment(s): RT TOTAL KNEE, FELIX CATARACTS, RT LEG VARICOSE VEIN, LEFT SHOULDER, D&C, Left breast lumpectomy Past Anesthesia/Blood Transfusion Reactions: No Reported Reaction Smoking Status: Former smoker Medications and Allergies Home Medications Medication Instructions Recorded Confirmed Type Aspirin [Adult Low Dose Aspirin EC] 81 mg PO DAILY 06/07/18 01/01/24 History Calcium Carbonate [Calcium] 600 mg PO BID 06/07/18 01/01/24 History Levothyroxine Sodium [Synthroid] 75 mcg PO DAILY 06/07/18 01/01/24 History Losartan [Cozaar] 50 mg PO DAILY 06/07/18 01/01/24 History Metoprolol Tartrate 25 mg PO HS 06/07/18 01/01/24 History Multivitamins, Thera [Multivitamin 1 tab PO DAILY 06/07/18 01/01/24 History (formulary)] [place]-3/Dha/Epa/Fish Oil [Fish Oil 1 cap PO BID 06/07/18 01/01/24 History 500 mg Softgel] Pantoprazole Sodium 40 mg PO BID 06/07/18 01/01/24 History oxyBUTYnin chloride [Ditropan XL] 10 mg PO DAILY 01/16/19 01/01/24 History Cholecalciferol [Vitamin D3 (25 25 mcg PO DAILY 08/20/22 01/01/24 History Mcg = 1000 Iu)] Fexofenadine HCl [Kristy Allergy] 180 mg PO DAILY 08/20/22 01/01/24 History Letrozole [Femara] 2.5 mg PO DAILY 08/20/22 01/01/24 History Magnesium Oxide [Magnesium] 500 mg PO DAILY 08/20/22 01/01/24 History Meloxicam [Mobic] 15 mg PO DAILY 08/20/22 01/01/24 History Montelukast [Singulair] 10 mg PO HS 08/20/22 01/01/24 History Risedronate Sodium [Actonel] 35 mg PO MO 08/20/22 01/01/24 History Ezetimibe [Zetia] 10 mg PO DAILY 01/01/24 01/01/24 History Fiber Well 200mg 2 cap PO HS 01/01/24 01/01/24 History Fluticasone/Umeclidin/Vilanter 1 puff INHALATION Q2D 01/01/24 01/01/24 History [Trelegy Ellipta 200-62.5-25] Fluticasone/Vilanterol [Breo 1 puff INHALATION Q2D 01/01/24 01/01/24 History Ellipta 200-25 Mcg Inhaler] Glucosa Schultz 2Kcl/Chondroitin Schultz 2 cap PO HS 01/01/24 01/01/24 History [Glucosamine-Chondroitin Cap] Allergies Allergy/AdvReac Type Severity Reaction Status Date / Time sulfamethoxazole Allergy Unknown Verified 01/01/24 14:11 [From Bactrim] trimethoprim [From Bactrim] Allergy Unknown Verified 01/01/24 14:11 Physical Exam Vitals: Vital Signs Temp Pulse Pulse Resp BP BP Pulse Ox 01/02/24 06:15 66 18 191/83 95 01/02/24 02:00 60 18 165/77 95 01/02/24 00:00 60 18 171/66 95 01/01/24 22:41 68 18 173/66 93 L 01/01/24 19:12 70 20 151/59 96 01/01/24 18:15 66 18 203/82 96 01/01/24 14:09 98.3 F 64 16 190/72 96 Intake and Output 01/01/24 01/02/24 01/02/24 22:59 06:59 14:59 Other: Weight 90.718 kg In general patient is alert and oriented x 3 in no distress HEENT head normocephalic and atraumatic Neck is supple no JVD no goiter no lymphadenopathy no carotid bruit Chest examination is clear to auscultation no crackles no wheezing, there is a rash on the chest in between breasts. Cardiac exam reveals regular heart sounds S1 and S2 no gallops no murmurs Abdomen is soft nontender no organomegaly with normal bowel sounds Extremity exam reveals no edema no cyanosis or clubbing Neurological examination reveals no gross focal deficits Results CBC & Chem 7: 01/01/24 14:37 01/01/24 14:37 Labs: Abnormal Lab Results - Last 24 Hours (Table) 01/01/24 01/01/24 Range/Units 14:37 14:37 Calcium 10.4 H (8.4-10.2) mg/dL Ur Leukocyte Esterase Moderate H (Negative) Urine WBC 16 H (0-5) /hpf Urine Bacteria Many H (None) /hpf Assessment and Plan Plan: Severe dizziness Evidence of urinary tract infection Uncontrolled blood pressure Rash on the chest between breast Underlying history of hypertension Underlying history of hyperlipidemia Underlying history of hypothyroidism Underlying history of gastroesophageal reflux disease Underlying history of osteoporosis Underlying history of osteoarthritis Underlying history of urinary incontinence At this time patient was seen and examined Home medications reviewed and reordered She was started on IV ceftriaxone in the emergency room for urinary tract infection Echocardiogram and carotid Doppler ordered Cardiology consultation and neurology consultation requested in regard to severe dizziness For DVT prophylaxis subcu Antonio Will follow closely
[2024-01-02] MEDS: NYSTATIN 100,000UNIT/GM CREAM 30 GM TUBE TOPICAL SCH (13:50)
--- NOTE | 2024-01-02 14:21 | P.CNNES ---
History of Present Illness Consult date: 01/02/24 Requesting physician: Isacc Wayne Reason for Consult: suspect posterior cva History of Present Illness: This is AN 83-year-old woman who present emergency department because of dizziness. She states that her dizziness has been going on for 3 days and she feels that she is spinning And happens she gets up. And whenever she gets up she feels like something is dragging her down. She also noticed some right eye blurry vision. She denies any focal weakness, numbness, any ringing in the ears, any nausea or vomiting. Denies any focal weakness. Denies any recent sick contacts. Denies any fevers. She denies any hearing loss. She feels today she is better. Denies any history of stroke. She states that recently her blood pressure has been fluctuating and it has been high at times. She has chronic neck pain and sees a physical therapist but denies having any neck manipulation. She has a recent UTI. She is on aspirin 81 mg daily. Some of the workup during this hospital visit consisted of: I reviewed the labs. Urine analysis is leukocyte esterase is moderate urine white blood cell 16 urine bacteria is many CT head is reported as no acute intracranial process. Chronic appearing periventricular white matter ischemic changes. Findings are stable from comparison. I personally reviewed the CT and I agree there is no acute or subacute ischemia. CTA head and neck: Reported as no flow-limiting stenosis bilateral carotid bifurcation. Normal [place]. Review of Systems Positive and negative as per HPI. Past Medical History Past Medical History: Cancer, COPD, GERD/Reflux, Hypertension, Thyroid Disorder Additional Past Medical History / Comment(s): breast Cancer, overactive bladder History of Any Multi-Drug Resistant Organisms: None Reported Past Surgical History: Hysterectomy, Joint Replacement, Orthopedic Surgery Additional Past Surgical History / Comment(s): RT TOTAL KNEE, FELIX CATARACTS, RT LEG VARICOSE VEIN, LEFT SHOULDER, D&C, Left breast lumpectomy Past Anesthesia/Blood Transfusion Reactions: No Reported Reaction Smoking Status: Former smoker Medications and Allergies Home Medications Medication Instructions Recorded Confirmed Type Aspirin [Adult Low Dose Aspirin EC] 81 mg PO DAILY 06/07/18 01/01/24 History Calcium Carbonate [Calcium] 600 mg PO BID 06/07/18 01/01/24 History Levothyroxine Sodium [Synthroid] 75 mcg PO DAILY 06/07/18 01/01/24 History Losartan [Cozaar] 50 mg PO DAILY 06/07/18 01/01/24 History Metoprolol Tartrate 25 mg PO HS 06/07/18 01/01/24 History Multivitamins, Thera [Multivitamin 1 tab PO DAILY 06/07/18 01/01/24 History (formulary)] [place]-3/Dha/Epa/Fish Oil [Fish Oil 1 cap PO BID 06/07/18 01/01/24 History 500 mg Softgel] Pantoprazole Sodium 40 mg PO BID 06/07/18 01/01/24 History oxyBUTYnin chloride [Ditropan XL] 10 mg PO DAILY 01/16/19 01/01/24 History Cholecalciferol [Vitamin D3 (25 25 mcg PO DAILY 08/20/22 01/01/24 History Mcg = 1000 Iu)] Fexofenadine HCl [Kristy Allergy] 180 mg PO DAILY 08/20/22 01/01/24 History Letrozole [Femara] 2.5 mg PO DAILY 08/20/22 01/01/24 History Magnesium Oxide [Magnesium] 500 mg PO DAILY 08/20/22 01/01/24 History Meloxicam [Mobic] 15 mg PO DAILY 08/20/22 01/01/24 History Montelukast [Singulair] 10 mg PO HS 08/20/22 01/01/24 History Risedronate Sodium [Actonel] 35 mg PO MO 08/20/22 01/01/24 History Ezetimibe [Zetia] 10 mg PO DAILY 01/01/24 01/01/24 History Fiber Well 200mg 2 cap PO HS 01/01/24 01/01/24 History Fluticasone/Umeclidin/Vilanter 1 puff INHALATION Q2D 01/01/24 01/01/24 History [Trelegy Ellipta 200-62.5-25] Fluticasone/Vilanterol [Breo 1 puff INHALATION Q2D 01/01/24 01/01/24 History Ellipta 200-25 Mcg Inhaler] Glucosa Schultz 2Kcl/Chondroitin Schultz 2 cap PO HS 01/01/24 01/01/24 History [Glucosamine-Chondroitin Cap] Allergies Allergy/AdvReac Type Severity Reaction Status Date / Time sulfamethoxazole Allergy Unknown Verified 01/01/24 14:11 [From Bactrim] trimethoprim [From Bactrim] Allergy Unknown Verified 01/01/24 14:11 Physical Examination - Vital Signs Vital Signs: Vital Signs Pulse Pulse Resp BP BP Pulse Ox 01/02/24 13:51 64 18 177/74 96 01/02/24 06:15 66 18 191/83 95 01/02/24 02:00 60 18 165/77 95 01/02/24 00:00 60 18 171/66 95 01/01/24 22:41 68 18 173/66 93 L 01/01/24 19:12 70 20 151/59 96 01/01/24 18:15 66 18 203/82 96 Intake and Output 01/01/24 01/02/24 01/02/24 22:59 06:59 14:59 Other: Weight 90.718 kg GENERAL: The patient is lying in bed and is not in acute distress. NEUROLOGICAL: Higher mental function: The patient is awake, alert, oriented to self, place and time. Patient is following commands. No aphasia and no neglect. Cranial nerves: The pupils are round, equal and reactive to light and a ccommodation. Visual cummins are full to confrontation throughout. Extraocular movement is intact no nystagmus is noted. Facial sensation is normal to touch throughout. The facial strength is normal throughout. Hearing is normal bilaterally to hand rub. Tongue is midline and moved [id number] without any difficulty. No dysarthria is noted. Shoulder shrug is normal bilaterally. Motor: Gait is walks with her cane and somewhat slow because of chronic knee pain but otherwise no drift, not sway one side or other or require additional assistance. The strength is 5 over 5 throughout. Normal tone and bulk. Cerebellum: Normal finger to nose bilaterally. Sensation: Sensation is normal to touch throughout. Reflexes (right/left):2+ throughout. Plantars are downgoing bilaterally. Results - Laboratory Findings CBC and BMP: 01/01/24 14:37 01/01/24 14:37 Abnormal Lab Findings: Abnormal Labs 01/01/24 01/01/24 14:37 14:37 Calcium 10.4 H Ur Leukocyte Esterase Moderate H Urine WBC 16 H Urine Bacteria Many H Assessment and Plan Assessment: This is an 83-year-old woman who present emergency department because of dizziness for the past 3 days and she feels happens when she stands up as well as has recent right blurry vision. She states that her blood pressure has been fluctuating recently and she states that it has been high in the 180s 190s as well as has recent urinary tract infection. Acute vertigo seems more peripheral due to her acute urinary tract infection as well as hypertensive urgency. Cannot rule out TIA. On examination no focal deficit. Hypertensive urgency Probable acute urinary tract infection Chronic neck pain History of urinary tract infection History of hypertension Hypothyroidism COPD Hypercholesteremia Plan: I ordered MRI of the brain. Recommend the patient to follow-up with the orthopedic surgeon regarding her chronic neck pain and consider MRI of the brain as an outpatient and this is not a new issue that needs to be addressed as an inpatient but this is chronic. Recommend normotensive blood pressure Patient was given aspirin 324 mg once in the ED. She is resumed on her home dose of 81 mg daily. She is on Zetia 10 mg daily. Will defer the rest of the medical management to primary and other specialist Plan discussed with the patient and her daughter was at bedside. Thank you for the consultation. Time with Patient: Greater than 30
--- NOTE | 2024-01-02 17:41 | CA ---
Transthoracic Echo Report Name: Amy Tijerina Age: 83 Gender: F : 1940 Exam Date: 01/02/2024 14:58 Exam Location: [facility] Ht (in): 62 Wt (lb): 200 Ordering Physician: Cristian Kapoor MD Attending/Referring Phys: Fur Sewer Leanne Bates RDCS Procedure CPT: Indications: dizziness Cardiac Hx: Technical Quality: Poor Contrast 1: Definity Total Dose (mL): 2 Contrast 2: Total Dose (mL): MEASUREMENTS (Male / Female) Normal Values 2D ECHO LV Diastolic Diameter PLAX 4.0 cm 4.2 - 5.9 / 3.9 - 5.3 cm LV Systolic Diameter PLAX 2.8 cm IVS Diastolic Thickness 1.2 cm 0.6 - 1.0 / 0.6 - 0.9 cm LVPW Diastolic Thickness 1.0 cm 0.6 - 1.0 / 0.6 - 0.9 cm LV Relative Wall Thickness 0.5 RV Internal Dim ED PLAX 1.8 cm LA Volume 68.9 cm??? 18 - 58 / 22 - 52 cm??? LA Volume Index 33.9 cm???/m??? 16 - 28 cm???/m??? M-MODE Aortic Root Diameter MM 3.2 cm LA Systolic Diameter MM 3.7 cm LA Ao Ratio MM 1.2 AV Cusp Separation MM 1.8 cm DOPPLER AV Peak Velocity 164.6 cm/s AV Peak Gradient 10.8 mmHg MV Area PHT 2.2 cm??? Mitral E Point Velocity 60.0 cm/s Mitral A Point Velocity 103.1 cm/s Mitral E to A Ratio 0.6 MV Deceleration Time 350.6 ms FINDINGS Left Ventricle Left ventricular ejection fraction is estimated at 60-65%. Mildly increased septal wall thickness. Left ventricular cavity size normal. No obvious regional wall motion abnormalities. Right Ventricle Right ventricle not well visualized. Right Atrium Mild right atrial dilatation. Left Atrium Mildly increased left atrial volume. Mildly increased left atrial area. Mitral Valve Structurally normal mitral valve. Trace mitral regurgitation. No mitral stenosis. Aortic Valve Aortic valve not well visualized. No aortic valve stenosis or regurgitation. Tricuspid Valve Structurally normal tricuspid valve. Trace tricuspid regurgitation. No tricuspid stenosis. Pulmonic Valve Pulmonic valve not well visualized. Pericardium No pericardial or pleural effusion. Aorta Normal size aortic root and proximal ascending aorta. CONCLUSIONS Normal LV function Previewed by: Dr. Tigre Patel MD (Electronically Signed) Final Date: 02 January 2024 17:40
[2024-01-03 07:38] LABS: Basophils # (A) 0.1 k/uL (0-0.2); Basophils % (A) 2 %; Eosinophils # (A) 0.4 k/uL (0-0.7); Eosinophils % (A) 6 %; HCT 42.6 % (34.0-46.0); HGB 13.6 gm/dL (11.4-16.0); Lymphocytes # (A) 1.3 k/uL (1.0-4.8); Lymphocytes % (A) 22 %; MCHC 31.9 g/dL (31.0-37.0); MCV 97.1 fL (80.0-100.0); Mean Platelet Volume 8.4; Monocytes # (A) 0.4 k/uL (0-1.0); Monocytes % (A) 7 %; Neutrophils # (A) 3.7 k/uL (1.3-7.7); Neutrophils % (A) 61 %; Platelet Count 256 k/uL (150-450); RBC 4.39 m/uL (3.80-5.40); RDW 12.8 % (11.5-15.5)
[2024-01-03 07:53] LABS: ALT 17 U/L (4-34); AST 24 U/L (14-36); African American GFR (CKD) 84 (>60 ml/min/1.73 sqM); Albumin 3.4 g/dL (3.5-5.0); Alkaline Phosphatase 44 U/L (38-126); Anion Gap 5 mmol/L; Blood Urea Nitrogen 16 mg/dL (7-17); Calcium 9.3 mg/dL (8.4-10.2); Carbon Dioxide 25 mmol/L (22-30); Chloride 110 mmol/L (98-107); Glucose 106 mg/dL (74-99); Non-African American GFR(CKD) 73 (>60 ml/min/1.73 sqM); Potassium 4.6 mmol/L (3.5-5.1); Sodium 140 mmol/L (137-145); Total Bilirubin 0.4 mg/dL (0.2-1.3); Total Protein 6.3 g/dL (6.3-8.2)
--- NOTE | 2024-01-03 08:06 | P.CONS ---
History of Present Illness - Reason for Consult Consult date: 01/02/24 Chest wall rash Requesting physician: Cristian Kapoor - Chief Complaint Dizziness high blood pressure x days - History of Present Illness Patient is a 83-year-old female with a past medical history significant for hypertension reflux COPD breast cancer overactive bladder, presenting to the hospital for evaluation of dizziness symptoms started the day before presentation to the hospital and also noticed to have elevated blood pressure at home for the patient has been admitted to hospital for further workup patient also complaining of rash between the 2 breast area that has been there off and on for couple of weeks to months patient mention she uses some corn powder on it and seem to help a little bit but not completely go away patient complaining of itching and some burning pain to it, moderate intensity without any radiation and denies having any drainage patient complaining of similar rash in the groin area but currently do not have that rash in the groin patient on presentation to the hospital was afebrile and no fever have been recorded subsequently did have elevated blood pressure but not tachycardic or hypoxic patient did have a white count of 7.4 creatinine has been normal urine is mildly positive infectious disease was consulted for further management Review of Systems Positive point and negatives has been mentioned in the HPI, complete review of systems was performed and all other systems are negative Past Medical History Past Medical History: Cancer, COPD, GERD/Reflux, Hypertension, Thyroid Disorder Additional Past Medical History / Comment(s): breast Cancer, overactive bladder History of Any Multi-Drug Resistant Organisms: None Reported Past Surgical History: Hysterectomy, Joint Replacement, Orthopedic Surgery Additional Past Surgical History / Comment(s): RT TOTAL KNEE, FELIX CATARACTS, RT LEG VARICOSE VEIN, LEFT SHOULDER, D&C, Left breast lumpectomy Past Anesthesia/Blood Transfusion Reactions: No Reported Reaction Smoking Status: Former smoker Medications and Allergies Home Medications Medication Instructions Recorded Confirmed Type Aspirin [Adult Low Dose Aspirin EC] 81 mg PO DAILY 06/07/18 01/01/24 History Calcium Carbonate [Calcium] 600 mg PO BID 06/07/18 01/01/24 History Levothyroxine Sodium [Synthroid] 75 mcg PO DAILY 06/07/18 01/01/24 History Losartan [Cozaar] 50 mg PO DAILY 06/07/18 01/01/24 History Metoprolol Tartrate 25 mg PO HS 06/07/18 01/01/24 History Multivitamins, Thera [Multivitamin 1 tab PO DAILY 06/07/18 01/01/24 History (formulary)] [place]-3/Dha/Epa/Fish Oil [Fish Oil 1 cap PO BID 06/07/18 01/01/24 History 500 mg Softgel] Pantoprazole Sodium 40 mg PO BID 06/07/18 01/01/24 History oxyBUTYnin chloride [Ditropan XL] 10 mg PO DAILY 01/16/19 01/01/24 History Cholecalciferol [Vitamin D3 (25 25 mcg PO DAILY 08/20/22 01/01/24 History Mcg = 1000 Iu)] Fexofenadine HCl [Kristy Allergy] 180 mg PO DAILY 08/20/22 01/01/24 History Letrozole [Femara] 2.5 mg PO DAILY 08/20/22 01/01/24 History Magnesium Oxide [Magnesium] 500 mg PO DAILY 08/20/22 01/01/24 History Meloxicam [Mobic] 15 mg PO DAILY 08/20/22 01/01/24 History Montelukast [Singulair] 10 mg PO HS 08/20/22 01/01/24 History Risedronate Sodium [Actonel] 35 mg PO MO 08/20/22 01/01/24 History Ezetimibe [Zetia] 10 mg PO DAILY 01/01/24 01/01/24 History Fiber Well 200mg 2 cap PO HS 01/01/24 01/01/24 History Fluticasone/Umeclidin/Vilanter 1 puff INHALATION Q2D 01/01/24 01/01/24 History [Trelegy Ellipta 200-62.5-25] Fluticasone/Vilanterol [Breo 1 puff INHALATION Q2D 01/01/24 01/01/24 History Ellipta 200-25 Mcg Inhaler] Glucosa Schultz 2Kcl/Chondroitin Schultz 2 cap PO HS 01/01/24 01/01/24 History [Glucosamine-Chondroitin Cap] Allergies Allergy/AdvReac Type Severity Reaction Status Date / Time sulfamethoxazole Allergy Unknown Verified 01/01/24 14:11 [From Bactrim] trimethoprim [From Bactrim] Allergy Unknown Verified 01/01/24 14:11 Physical Exam Vitals: Vital Signs Temp Pulse Pulse Resp BP BP Pulse Ox 01/02/24 06:15 66 18 191/83 95 01/02/24 02:00 60 18 165/77 95 01/02/24 00:00 60 18 171/66 95 01/01/24 22:41 68 18 173/66 93 L 01/01/24 19:12 70 20 151/59 96 01/01/24 18:15 66 18 203/82 96 01/01/24 14:09 98.3 F 64 16 190/72 96 Intake and Output 01/01/24 01/02/24 01/02/24 22:59 06:59 14:59 Other: Weight 90.718 kg GENERAL DESCRIPTION: Elderly female lying in bed, no distress. No tachypnea or a ccessory muscle of respiration use. HEENT: Shows Pallor , no scleral icterus. Oral mucous membrane is dry. No pharyngeal erythema or thrush NECK: Trachea central, no thyromegaly. LUNGS: Unlabored breathing. Clear to auscultation anteriorly. No wheeze or crackle. HEART: S1, S2, regular rate and rhythm. No loud murmur ABDOMEN: Soft, no tenderness , guarding or rigidity, no organomegaly EXTREMITIES: No edema of feet. SKIN: Dry rash between the 2 breasts with no significant redness or any foul-smelling drainage NEUROLOGICAL: The patient is awake, alert, oriented x3, mood and affect normal. Results CBC & Chem 7: 01/03/24 06:50 01/03/24 06:50 Labs: Abnormal Lab Results - Last 24 Hours (Table) 01/01/24 01/01/24 Range/Units 14:37 14:37 Calcium 10.4 H (8.4-10.2) mg/dL Ur Leukocyte Esterase Moderate H (Negative) Urine WBC 16 H (0-5) /hpf Urine Bacteria Many H (None) /hpf Assessment and Plan (1) Cutaneous candidiasis Current Visit: Yes Status: Acute Code(s): B37.2 - CANDIDIASIS OF SKIN AND NAIL SNOMED Code(s): 36885852 (2) Rash Current Visit: Yes Status: Acute Code(s): R21 - RASH AND OTHER NONSPECIFIC SKIN ERUPTION SNOMED Code(s): 022516845 Plan: 1patient with a rash between the 2 breast area has a clinical feature of cutaneous candidiasis/yeast infection as the patient reports similar rash to the groin area and some improvement with the corn powder. 2we will apply nystatin cream to the rash area twice a day and monitor clinical course closely We will follow on clinical condition and cultures to further adjust medication if needed Thank you for this consultation we will follow the patient along with you Dictation was produced using 24/7 Card dictation software. please excuse any gram matical, word or spelling errors. Time with Patient: Greater than 30
--- NOTE | 2024-01-03 08:38 | P.PN ---
Subjective Progress Note Date: 01/03/24 Amy Tijerina, is an 83-year-old female who presented to [facility] emergency room with a chief complaint of severe dizziness, patient stated that she woke up on Tuesday morning with severe dizziness, and her symptom has been worsening since then, patient stated that she felt that she was falling backward, on Tuesday patient decided to come to emergency room for further evaluation. She was evaluated in the emergency room vital examination on presentation revealed a temperature of 98.3 pulse 64 respiration 16 blood pressure 190/72 pulse ox 96% on room air Laboratory data revealed a white blood count of 7.4 hemoglobin 14.7 platelet count 271 sodium 140 potassium 4.5 chloride 106 CO2 30 BUN 14 creatinine 0.83 calcium 10.4 urine analysis was positive for leukocyte esterase and 16 white blood cells and many bacteria. Testing in the emergency room revealed EKG done in the emergency room revealed sinus rhythm with left bundle branch block, CT scan of the brain revealed no ac [place] intracranial process, with chronic appearing periventricular white matter ischemic changes. CT angiogram of the neck and brain revealed no flow-limiting stenosis in the bilateral carotid bifurcation, and normal [place]. Patient was admitted to medical floor for further evaluation and treatment Past medical history is significant for history of hypertension, history of hyp erlipidemia, history of hypothyroidism, history of osteoarthritis, history of osteoporosis, history of gastroesophageal reflux disease, history of urinary incontinence, for which patient takes oxybutynin 10 mg daily, she is stating she has been on this medication for 4 years. On review of systems patient is alert and oriented x 3 in no apparent distress, there is no fever or chills no headache, no chest pain no shortness of breath no cough, no nausea or vomiting no abdominal pain no diarrhea no blood in the stools, she has frequency with urination and some urgency and mild incontinence, there is no weakness or numbness in any of the extremities, there is no change in vision speech or gait. On 01/03/2024 patient is alert and oriented x 3. Patient still reports some dizziness MRI of the brain has been ordered per neurology services patient remains on Rocephin for UTI nightstand cream has been ordered per ID for rash on chest. Blood pressure remains high 176/82. Temp 97.9, heart rate 59, respiratory rate 14, blood pressure 92 on room air. Patient denies chest pain. Patient denies nausea vomiting or diarrhea. Patient denies any urinary burning or frequency Objective - Vital Signs Vital signs: Vital Signs Temp 97.9 F 01/03/24 03:22 Pulse 59 L 01/03/24 03:22 Resp 14 01/03/24 03:22 BP 176/82 01/03/24 03:22 Pulse Ox 92 L 01/03/24 03:22 FiO2 Intake & Output 01/02/24 01/03/24 01/03/24 18:59 06:59 18:59 Intake Total 250 Balance 250 Weight 101.4 kg Intake: Oral 250 Other: Voiding Method Toilet # Voids 1 1 - Exam In general patient is alert and oriented x 3 in no distress HEENT head normocephalic and atraumatic Neck is supple no JVD no goiter no lymphadenopathy no carotid bruit Chest examination is clear to auscultation no crackles no wheezing, there is a rash on the chest in between breasts. Cardiac exam reveals regular heart sounds S1 and S2 no gallops no murmurs Abdomen is soft nontender no organomegaly with normal bowel sounds Extremity exam reveals no edema no cyanosis or clubbing Neurological examination reveals no gross focal deficits - Labs CBC & Chem 7: 01/03/24 06:50 01/03/24 06:50 Labs: Abnormal Lab Results - Last 24 Hours (Table) 01/03/24 Range/Units 06:50 Chloride 110 H (98-107) mmol/L Glucose 106 H (74-99) mg/dL Albumin 3.4 L (3.5-5.0) g/dL Assessment and Plan Plan: Severe dizziness Evidence of urinary tract infection Uncontrolled blood pressure Rash on the chest between breast Underlying history of hypertension Underlying history of hyperlipidemia Underlying history of hypothyroidism Underlying history of gastroesophageal reflux disease Underlying history of osteoporosis Underlying history of osteoarthritis Underlying history of urinary incontinence At this time patient was seen and examined Home medications reviewed and reordered She was started on IV ceftriaxone in the emergency room for urinary tract infection Echocardiogram and carotid Doppler ordered Of the brain has been ordered Cardiology consultation and neurology consultation requested in regard to severe dizziness For DVT prophylaxis subcu Antonio Will follow closely
[2024-01-03] MEDS ORDERED: LOSARTAN 50 MG TAB PO SCH (10:00)
[2024-01-03] MEDS: LOSARTAN 50 MG TAB PO ONE (10:22)
--- NOTE | 2024-01-03 10:24 | MR ---
EXAMINATION TYPE: MR brain wo con DATE OF EXAM: 01/03/2024 COMPARISON: CT brain 01/01/2024 CLINICAL INDICATION: Female, 83 years old with history of dizziness PHH, Dizziness TECHNIQUE: T1-weighted sagittal, T2, FLAIR, and diffusion axial, and T2 coronal coronal views of the brain are submitted. FINDINGS: There is no evidence of acute ischemia. Moderate generalized degenerative change. Focal and confluent areas of abnormal signal in the white m atter are nonspecific but most typical of remote microvascular ischemia. Craniocervical junction maintained. Sella turcica has a normal appearance. Changes of chronic sinusit is. Orbits are symmetric. Mental changes of left mastoiditis. IMPRESSION: 1. No acute intracranial process extending up into degenerative and remote ischemic white matter micr ovascular disease. [facility], , 01/03/2024 10:22 AM
[2024-01-03] MEDS: NON FORMULARY DRUG (Fluticasone/Umeclidin/Vilanter [Trelegy Ellipta 200-62.5-25] 1 EACH Bl INHALATION SCH (11:03)
[2024-01-03] MEDS: NON FORMULARY DRUG (Fluticasone/Vilanterol [Breo Ellipta 200-25 Mcg Inhaler] 1 EACH Blst.W INHALATION SCH (11:04)
[2024-01-03] MEDS: hydrALAZINE HCL 20 MG/ML 1 ML VIAL IVP PRN (12:42)
[2024-01-03] MEDS: amLODIPine 5 MG TAB PO SCH (15:16)
[2024-01-03] MEDS: MECLIZINE 25 MG TAB PO SCH (15:18)
--- NOTE | 2024-01-03 15:25 | P.PN ---
Subjective Progress Note Date: 01/03/24 I am following-up with patient and she is accompanied with her daughter and patient states she is doing better but continues to feels dizzy upon getting up but compared to couple days ago is improving. Denies new neurological issues. Objective - Vital Signs Vital signs: Vital Signs Temp 97.8 F 01/03/24 12:29 Pulse 76 01/03/24 12:29 Resp 18 01/03/24 12:29 BP 183/84 01/03/24 12:29 Pulse Ox 95 01/03/24 12:29 FiO2 Intake & Output 01/02/24 01/03/24 01/03/24 18:59 06:59 18:59 Intake Total 900 Balance 900 Weight 101.4 kg Intake: Oral 900 Other: Voiding Method Toilet Toilet # Voids 1 2 # Bowel Movements 1 - Exam GENERAL: The patient is lying in bed and is not in acute distress. NEUROLOGICAL: Higher mental function: The patient is awake, alert, oriented to self, place and time. Patient is following commands. No aphasia and no neglect. Cranial nerves: The pupils are round, equal and reactive to light and accommodat ion. Visual cummins are full to confrontation throughout. Extraocular movement is intact no nystagmus is noted. Facial sensation is normal to touch throughout. The facial strength is normal throughout. Hearing is normal bilaterally to hand rub. Tongue is midline and moved [id number] without any difficulty. No dysarthria is noted. Shoulder shrug is normal bilaterally. Motor: Gait is walks with her cane and somewhat slow because of chronic knee pain but otherwise no drift, not sway one side or other or require additional assistance. The strength is 5 over 5 throughout. Normal tone and bulk. Cerebellum: Normal finger to nose bilaterally. Sensation: Sensation is normal to touch throughout. Reflexes (right/left):2+ throughout. Plantars are downgoing bilaterally. Some of the workup during this hospital visit consisted of: Urine analysis is leukocyte esterase is moderate urine white blood cell 16 urine bacteria is many CT head is reported as no acute intracranial process. Chronic appearing periventricular white matter ischemic changes. Findings are stable from comparison. I personally reviewed the CT and I agree there is no acute or subacute ischemia. CTA head and neck: Reported as no flow-limiting stenosis bilateral carotid bifurcation. Normal [place]. MRI Brain: No acute intracranial process extending up into degenerative and remote ischemic white matter microvascular disease. 2D echo: Reported as Normal LV function. - Labs CBC & Chem 7: 01/03/24 06:50 01/03/24 06:50 Labs: Abnormal Lab Results - Last 24 Hours (Table) 01/03/24 Range/Units 06:50 Chloride 110 H (98-107) mmol/L Glucose 106 H (74-99) mg/dL Albumin 3.4 L (3.5-5.0) g/dL Assessment and Plan Assessment: This is an 83-year-old woman who present emergency department because of dizziness for the past 3 days and she feels happens when she stands up as well as has recent right blurry vision. She states that her blood pressure has been fluctuating recently and she states that it has been high in the 180s 190s as well as has recent urinary tract infection. Acute vertigo seems more peripheral due to her acute urinary tract infection as well as hypertensive urgency. Not CVA, MRI Brain is negative for acute process and does not appear TIA (since continues to have symptoms which is prolonged for TIA and no focal deficit associated with it)---clinically improving Hypertensive urgency Probable acute urinary tract infection Chronic neck pain History of urinary tract infection History of hypertension Hypothyroidism COPD Hypercholesteremia Plan: I started the patient on Antivert 12.5mg TID scheduled and after that PRN. If continues to have symptoms recommend to follow-up with ENT as outpatient and recommend vestibular rehab therapy. Recommend the patient to follow-up with the orthopedic surgeon regarding her chronic neck pain and consider MRI of the brain as an outpatient and this is not a new issue that needs to be addressed as an inpatient but this is chronic. Recommend normotensive blood pressure Patient was given aspirin 324 mg once in the ED. She is resumed on her home dose of 81 mg daily. She is on Zetia 10 mg daily. Will defer the rest of the medical management to primary and other specialist Plan discussed with the patient and her daughter was at bedside. There is no further neurological work-up. Will sign off. Please reconsult if needed. Time with Patient: Less than 30
[2024-01-03] MEDS: IPRATROPIUM 0.5 MG/2.5 ML NEBU INHALATION SCH (16:23)
--- NOTE | 2024-01-03 20:33 | P.CRDCN ---
History of Present Illness Consult date: 01/03/24 History of present illness: HISTORY OF PRESENTING ILLNESS 83-year-old female presents to the [facility] with concerns of severe dizziness. She reports that she woke up on Tuesday morning with severe dizziness which has gradually worsened. She felt like she was falling backward. On Tuesday patient decided to come to the ER. She denied any symptoms of chest pain chest pressure palpitations. She denied any syncopal episodes. She denies any focal neurological weakness. ECG showed sinus rhythm with left bundle branch block. Labs shows hemoglobin 13.6, BUN 16, creatinine 0.7, REVIEW OF SYSTEMS 14 point review of system is negative except what is mentioned above in HPI. PHYSICAL EXAMINATION Vital signs reviewed. Head: Normocephalic. Eyes: Sclerae nonicteric. Neck: Brisk carotid upstroke, no jugular venous distention. Lungs: Clear to auscultation. Heart: Regular rate and rhythm, S1-S2, no S3, no murmur or rub. Abdomen: Soft nontender, positive bowel sounds. Extremities: No edema, intact distal pulses. Neuro: Alert, oritented, no focal deficits. Detailed neuro exam was not performed. ASSESSMENT Essential hypertension, poorly controlled Dizziness, likely peripheral vertigo. Neurology rule out CVA Cardiac testing Echo shows EF 60-65, no significant valvular abnormality, no regional wall motion abnormality, no significant chamber size abnormality CT angio neck, mild intimal calcification bilaterally with no flow-limiting stenosis MRI brain, no evidence of acute ischemic stroke or acute findings notice PLAN Discontinue beta-glenn due to lbbb. Continue losartan with increased dose of 100 mg daily. At home was on 50 mg daily. Add amlodipine 5 mg daily aspirin 81 mg, Zetia Trial of Antivert Monitor blood pressure and telemetry Recommend 14-day Holter monitor to be picked up from [facility] office at the time of discharge If blood pressure stable tomorrow, recommend discharge with outpatient follow-up with cardiology Obtain TSH, NT-proBNP, HbA1c, lipid panel Yonatan Jason MD, FACC, RPVI Thank you for allowing [facility] to participate in this patient's care. Feel free to reach out in case of any followup questions. Past Medical History Past Medical History: Cancer, COPD, GERD/Reflux, Hypertension, Thyroid Disorder Additional Past Medical History / Comment(s): breast Cancer, overactive bladder History of Any Multi-Drug Resistant Organisms: None Reported Past Surgical History: Hysterectomy, Joint Replacement, Orthopedic Surgery Additional Past Surgical History / Comment(s): RT TOTAL KNEE, FELIX CATARACTS, RT LEG VARICOSE VEIN, LEFT SHOULDER, D&C, Left breast lumpectomy Past Anesthesia/Blood Transfusion Reactions: No Reported Reaction Smoking Status: Former smoker Medications and Allergies Home Medications Medication Instructions Recorded Confirmed Type Aspirin [Adult Low Dose Aspirin EC] 81 mg PO DAILY 06/07/18 01/01/24 History Calcium Carbonate [Calcium] 600 mg PO BID 06/07/18 01/01/24 History Levothyroxine Sodium [Synthroid] 75 mcg PO DAILY 06/07/18 01/01/24 History Losartan [Cozaar] 50 mg PO DAILY 06/07/18 01/01/24 History Metoprolol Tartrate 25 mg PO HS 06/07/18 01/01/24 History Multivitamins, Thera [Multivitamin 1 tab PO DAILY 06/07/18 01/01/24 History (formulary)] Chandler-3/Dha/Epa/Fish Oil [Fish Oil 1 cap PO BID 06/07/18 01/01/24 History 500 mg Softgel] Pantoprazole Sodium 40 mg PO BID 06/07/18 01/01/24 History oxyBUTYnin chloride [Ditropan XL] 10 mg PO DAILY 01/16/19 01/01/24 History Cholecalciferol [Vitamin D3 (25 25 mcg PO DAILY 08/20/22 01/01/24 History Mcg = 1000 Iu)] Fexofenadine HCl [Kristy Allergy] 180 mg PO DAILY 08/20/22 01/01/24 History Letrozole [Femara] 2.5 mg PO DAILY 08/20/22 01/01/24 History Magnesium Oxide [Magnesium] 500 mg PO DAILY 08/20/22 01/01/24 History Meloxicam [Mobic] 15 mg PO DAILY 08/20/22 01/01/24 History Montelukast [Singulair] 10 mg PO HS 08/20/22 01/01/24 History Risedronate Sodium [Actonel] 35 mg PO MO 08/20/22 01/01/24 History Ezetimibe [Zetia] 10 mg PO DAILY 01/01/24 01/01/24 History Fiber Well 200mg 2 cap PO HS 01/01/24 01/01/24 History Fluticasone/Umeclidin/Vilanter 1 puff INHALATION Q2D 01/01/24 01/01/24 History [Trelegy Ellipta 200-62.5-25] Fluticasone/Vilanterol [Breo 1 puff INHALATION Q2D 01/01/24 01/01/24 History Ellipta 200-25 Mcg Inhaler] Glucosa Schultz 2Kcl/Chondroitin Schultz 2 cap PO HS 01/01/24 01/01/24 History [Glucosamine-Chondroitin Cap] Allergies Allergy/AdvReac Type Severity Reaction Status Date / Time sulfamethoxazole Allergy Unknown Verified 01/01/24 14:11 [From Bactrim] trimethoprim [From Bactrim] Allergy Unknown Verified 01/01/24 14:11 Physical Exam Vitals: Vital Signs Temp Pulse Resp BP Pulse Ox 01/03/24 15:15 97.8 F 67 18 141/67 96 01/03/24 12:29 97.8 F 76 18 183/84 95 01/03/24 08:35 55 L 18 201/86 93 L 01/03/24 03:22 97.9 F 59 L 14 176/82 92 L 01/03/24 01:15 14 01/02/24 23:15 98.2 F 62 14 174/69 93 L Intake and Output 01/03/24 01/03/24 01/03/24 06:59 14:59 22:59 Intake Total 900 360 Balance 900 360 Intake: Oral 900 360 Other: Voiding Method Toilet Toilet # Voids 1 2 # Bowel Movements 1 Weight 101.4 kg Results 01/03/24 06:50 01/03/24 06:50 Cardiac Enzymes 01/03/24 Range/Units 06:50 AST 24 (14-36) U/L CBC 01/03/24 Range/Units 06:50 WBC 6.0 (3.8-10.6) k/uL RBC 4.39 (3.80-5.40) m/uL Hgb 13.6 (11.4-16.0) gm/dL Hct 42.6 (34.0-46.0) % Plt Count 256 (150-450) k/uL Comprehensive Metabolic Panel 01/03/24 Range/Units 06:50 Sodium 140 (137-145) mmol/L Potassium 4.6 (3.5-5.1) mmol/L Chloride 110 H (98-107) mmol/L Carbon Dioxide 25 (22-30) mmol/L BUN 16 (7-17) mg/dL Creatinine 0.77 (0.52-1.04) mg/dL Glucose 106 H (74-99) mg/dL Calcium 9.3 (8.4-10.2) mg/dL AST 24 (14-36) U/L ALT 17 (4-34) U/L Alkaline Phosphatase 44 (38-126) U/L Total Protein 6.3 (6.3-8.2) g/dL Albumin 3.4 L (3.5-5.0) g/dL Current Medications Generic Name Dose Route Start Last Admin Trade Name Freq PRN Reason Stop Dose Admin Alprazolam 0.25 mg 01/03/24 17:37 Alprazolam 0.25 Mg Tab PO QID PRN Anxiety Amlodipine Besylate 5 mg 01/03/24 13:15 01/03/24 15:16 Amlodipine 5 Mg Tab PO 5 mg DAILY TANNA Administration Aspirin 81 mg 01/02/24 09:00 01/03/24 08:47 Aspirin 81 Mg PO 81 mg DAILY TANNA Administration Budesonide/Formoterol Fumarate 2 puff 01/03/24 20:00 Symbicort 160-4.5 Mcg Inhaler INHALATION RT-BID TANNA Calcium Carbonate/Glycine 500 mg 01/03/24 21:00 Calcium Carbonate 500 Mg Chewable PO BID TANNA Cholecalciferol 25 mcg 01/04/24 09:00 Cholecalciferol 25 Mcg (1000 Iu) Tablet PO DAILY TANNA Ezetimibe 10 mg 01/02/24 09:00 01/03/24 08:47 Ezetimibe 10 Mg Tab PO 10 mg DAILY TANNA Administration Enoxaparin Sodium 40 mg 01/02/24 09:00 01/03/24 08:48 Enoxaparin 40 Mg/0.4 Ml Syringe SQ 40 mg DAILY TANNA Administration Hydralazine HCl 10 mg 01/03/24 09:24 01/03/24 12:42 Hydralazine Hcl 20 Mg/Ml 1 Ml Vial IVP 10 mg Q6HR PRN Administration Blood Pressure - High Sodium Chloride 1,000 mls @ 20 mls/hr 01/01/24 15:45 01/03/24 16:59 Saline 0.9% IV Not Given .Q24H [facility] Ceftriaxone Sodium 1 gm/ 50 mls @ 100 mls/hr 01/02/24 09:00 01/03/24 08:48 Sodium Chloride IVPB 100 mls/hr Q24HR [facility] Administration Protocol Ipratropium Taylor 0.5 mg 01/03/24 12:00 01/03/24 16:23 Ipratropium 0.5 Mg/2.5 Ml Nebu INHALATION Not Given RT-QID [facility] Letrozole 2.5 mg 01/02/24 09:00 01/03/24 08:47 Letrozole 2.5 Mg Tab PO 2.5 mg DAILY [facility] Administration Levothyroxine Sodium 75 mcg 01/02/24 06:30 01/03/24 06:13 Levothyroxine 75 Mcg Tab PO 75 mcg 0630 [facility] Administration Loratadine 10 mg 01/04/24 09:00 Loratadine 10 Mg Tab PO DAILY [facility] Losartan Potassium 100 mg 01/04/24 09:00 Losartan 50 Mg Tab PO DAILY [facility] Magnesium Oxide 400 mg 01/02/24 09:00 01/03/24 08:47 Magnesium Oxide 400 Mg Tab PO 400 mg DAILY [facility] Administration Meclizine HCl 12.5 mg 01/03/24 16:00 01/03/24 15:18 Meclizine 25 Mg Tab PO 01/08/24 18:00 12.5 mg TID [facility] Administration Meloxicam 15 mg 01/04/24 09:00 Meloxicam 7.5 Mg Tab PO DAILY [facility] Montelukast Sodium 10 mg 01/01/24 21:00 01/02/24 20:22 Montelukast 10 Mg Tab PO 10 mg HS [facility] Administration Multivitamins 1 each 01/04/24 09:00 Multivitamins, Thera 1 Each Tab PO DAILY [facility] Naloxone HCl 0.2 mg 01/01/24 15:39 Naloxone 0.4 Mg/Ml 1 Ml Vial IV Q2M PRN Opioid Reversal Patient's Own ( 35 mg 01/09/24 07:00 Risedronate Sodium [ PO Actonel] 35 Mg Mo@0700 [facility] Tablet) Nystatin 1 applic 01/02/24 11:45 01/03/24 08:48 Nystatin 100,000unit/Gm Cream 30 Gm Tube TOPICAL 1 applic BID TANNA Administration Protocol Oxybutynin Chloride 10 mg 01/02/24 09:00 01/03/24 08:47 Oxybutynin 10 Mg Tab.Er.24 PO 10 mg DAILY TANNA Administration Pantoprazole Sodium 40 mg 01/01/24 21:00 01/03/24 08:47 Pantoprazole 40 Mg Tablet PO 40 mg BID TANNA Administration Intake and Output 01/03/24 01/03/24 01/03/24 06:59 14:59 22:59 Intake Total 900 360 Balance 900 360 Intake: Oral 900 360 Other: Voiding Method Toilet Toilet # Voids 1 2 # Bowel Movements 1 Weight 101.4 kg 01/03/24 06:50 01/03/24 06:50
[2024-01-03] MEDS ORDERED: NON FORMULARY DRUG (Omega-3/Dha/Epa/Fish Oil [Fish Oil 500 Mg Softgel] 1 EACH Capsule) PO SCH (21:00)
[2024-01-03] MEDS ORDERED: FIBER WELL PO SCH (21:00)
[2024-01-03] MEDS ORDERED: NON FORMULARY DRUG (Glucosa Su 2kcl/Chondroitin Su [Glucosamine-Chondroitin Cap] 1 EACH Ca PO SCH (21:00)
[2024-01-03] MEDS: ALPRAZolam 0.25 MG TAB PO PRN (21:17)
[2024-01-03] MEDS: CALCIUM CARBONATE 500 MG CHEWABLE PO SCH (21:18)
--- NOTE | 2024-01-03 21:31 | P.PN ---
Subjective Progress Note Date: 01/03/24 Principal diagnosis: Reason for follow-up chest wall rash likely cutaneous candidiasis Patient is a 83-year-old female with a past medical history significant for hypertension reflux COPD breast cancer overactive bladder, presenting to the hospital for evaluation of dizziness and elevated blood pressure also noticed to have a rash on the chest wall between the breast concerning for cutaneous candidiasis. On today's evaluation that is 01/03/2024,the patient denies any fever or any chills, patient is breathing comfortably on room air, the patient denies chest pain shortness of breath and no significant cough, patient denies abdominal pain, no nausea vomiting or diarrhea. Patient denies any worsening rash to the chest wall. Patient white count is 6.0, creatinine 0.77 urine has been negative Objective - Vital Signs Vital signs: Vital Signs Temp 97.8 F 01/03/24 12:29 Pulse 76 01/03/24 12:29 Resp 18 01/03/24 12:29 BP 183/84 01/03/24 12:29 Pulse Ox 95 01/03/24 12:29 FiO2 Intake & Output 01/02/24 01/03/24 01/03/24 18:59 06:59 18:59 Intake Total 650 Balance 650 Weight 101.4 kg Intake: Oral 650 Other: Voiding Method Toilet Toilet # Voids 1 2 # Bowel Movements 1 - Exam GENERAL DESCRIPTION: An elderly female lying in bed in no distress RESPIRATORY SYSTEM: Unlabored breathing , decreased breath sounds at bases HEART: S1 S2 regular rate and rhythm , ABDOMEN: Soft , no tenderness EXTREMITIES: No edema feet - Labs CBC & Chem 7: 01/03/24 06:50 01/03/24 06:50 Labs: Abnormal Lab Results - Last 24 Hours (Table) 01/03/24 Range/Units 06:50 Chloride 110 H (98-107) mmol/L Glucose 106 H (74-99) mg/dL Albumin 3.4 L (3.5-5.0) g/dL Assessment and Plan (1) Cutaneous candidiasis Current Visit: Yes Status: Acute Code(s): B37.2 - CANDIDIASIS OF SKIN AND NAIL SNOMED Code(s): 81130835 (2) Rash Current Visit: Yes Status: Acute Code(s): R21 - RASH AND OTHER NONSPECIFIC SKIN ERUPTION SNOMED Code(s): 988190717 Plan: 1patient with a rash between the 2 breast area has a clinical feature of cutane ous candidiasis/yeast infection as the patient reports similar rash to the groin area and some improvement with the corn powder. 2patient advised to continue nystatin cream to the rash area twice a day and no need for systemic antibiotic therapy Dictation was produced using [employer] dictation software. please excuse any grammatical, word or spelling errors.
[2024-01-03] MEDS: SYMBICORT 160-4.5 MCG INHALER INHALATION SCH (21:59)
[2024-01-04] MEDS: LOSARTAN 50 MG TAB PO SCH (08:20)
[2024-01-04] MEDS: MULTIVITAMINS, THERA 1 EACH TAB PO SCH (08:20)
[2024-01-04] MEDS: CHOLECALCIFEROL 25 MCG (1000 IU) TABLET PO SCH (08:20)
[2024-01-04] MEDS: LORATADINE 10 MG TAB PO SCH (08:21)
[2024-01-04] MEDS: MELOXICAM 7.5 MG TAB PO SCH (08:21)
[2024-01-04 08:50] LABS: Basophils # (A) 0.1 k/uL (0-0.2); Basophils % (A) 1 %; Eosinophils # (A) 0.4 k/uL (0-0.7); Eosinophils % (A) 5 %; HCT 46.2 % (34.0-46.0); HGB 14.6 gm/dL (11.4-16.0); Lymphocytes # (A) 1.7 k/uL (1.0-4.8); Lymphocytes % (A) 23 %; MCH 31.1 pg (25.0-35.0); MCHC 31.7 g/dL (31.0-37.0); Mean Platelet Volume 8.6; Monocytes # (A) 0.4 k/uL (0-1.0); Monocytes % (A) 5 %; Neutrophils # (A) 4.5 k/uL (1.3-7.7); Neutrophils % (A) 63 %; Platelet Count 290 k/uL (150-450); RBC 4.71 m/uL (3.80-5.40); RDW 12.9 % (11.5-15.5); WBC 7.1 k/uL (3.8-10.6)
[2024-01-04 09:08] LABS: ALT 19 U/L (4-34); AST 26 U/L (14-36); African American GFR (CKD) 82 (>60 ml/min/1.73 sqM); Albumin 3.9 g/dL (3.5-5.0); Alkaline Phosphatase 46 U/L (38-126); Anion Gap 9 mmol/L; Blood Urea Nitrogen 15 mg/dL (7-17); Carbon Dioxide 22 mmol/L (22-30); Chloride 107 mmol/L (98-107); Glucose 183 mg/dL (74-99); Non-African American GFR(CKD) 71 (>60 ml/min/1.73 sqM); Potassium 4.2 mmol/L (3.5-5.1); Sodium 138 mmol/L (137-145); Total Bilirubin 0.4 mg/dL (0.2-1.3)
[2024-01-04 11:30] VITALS: RESP 16
--- NOTE | 2024-01-04 12:08 | P.PN ---
Subjective Progress Note Date: 01/04/24 Principal diagnosis: Reason for follow-up chest wall rash likely cutaneous candidiasis Patient is a 83-year-old female with a past medical history significant for hypertension reflux COPD breast cancer overactive bladder, presenting to the hospital for evaluation of dizziness and elevated blood pressure also noticed to have a rash on the chest wall between the breast concerning for cutaneous candidiasis. On today's evaluation that is 01/04/2024,the patient remains to be afebrile, patient is on room air not requiring supplemental oxygen and denies any shortness of breath no chest pain or cough.Patient denies having any nausea or vomiting, no abdominal pain and no diarrhea patient mention rash to the chest wall has decreased in intensity. Patient white count is 7.1, creatinine 0.79 Objective - Vital Signs Vital signs: Vital Signs Temp 98 F 01/04/24 08:00 Pulse 70 01/04/24 11:28 Resp 16 01/04/24 11:28 BP 144/83 01/04/24 11:28 Pulse Ox 93 L 01/04/24 11:28 FiO2 Intake & Output 01/03/24 01/04/24 01/04/24 18:59 06:59 18:59 Intake Total 1260 170 660 Balance 1260 170 660 Weight 100.3 kg Intake: IV 10 Invasive Line 1 10 Intake, IV Titration 160 Amount Sodium Chloride 0.9% 1, 160 000 ml @ 20 mls/hr IV . Q24H [facility] Rx#:[id number] Oral 1260 660 Other: Voiding Method Toilet Toilet Toilet # Voids 2 1 2 # Bowel Movements 1 - Exam GENERAL DESCRIPTION: An elderly female lying in bed in no distress RESPIRATORY SYSTEM: Unlabored breathing , decreased breath sounds at bases HEART: S1 S2 regular rate and rhythm , ABDOMEN: Soft , no tenderness EXTREMITIES: No edema feet - Labs CBC & Chem 7: 01/04/24 08:06 01/04/24 08:06 Labs: Abnormal Lab Results - Last 24 Hours (Table) 01/04/24 01/04/24 Range/Units 08:06 08:06 Hct 46.2 H (34.0-46.0) % Glucose 183 H (74-99) mg/dL Microbiology - Last 24 Hours (Table) 01/02/24 09:00 Urine Culture - Final Urine,Voided Assessment and Plan (1) Cutaneous candidiasis Current Visit: Yes Status: Acute Code(s): B37.2 - CANDIDIASIS OF SKIN AND NAIL SNOMED Code(s): 22234399 (2) Rash Current Visit: Yes Status: Acute Code(s): R21 - RASH AND OTHER NONSPECIFIC SKIN ERUPTION SNOMED Code(s): 248913315 Plan: 1patient with a rash between the 2 breast area has a clinical feature of cutaneous candidiasis/yeast infection as the patient reports similar rash to the groin area and some improvement with the corn powder. 2patient mentions some improvement we will continue e nystatin cream to the rash area twice a day for 7 days on discharge and close outpatient follow-up Dictation was produced using [employer] dictation software. please excuse any grammatical, word or spelling errors. Time with Patient: Less than 30
--- NOTE | 2024-01-04 13:24 | P.PN ---
Subjective Progress Note Date: 01/04/24 HISTORY OF PRESENTING ILLNESS 83-year-old female presents to the [facility] with concerns of severe dizziness. She reports that she woke up on Tuesday morning with severe dizziness which has gradually worsened. She felt like she was falling backward. On Tuesday patient decided to come to the ER. She denied any symptoms of chest pain chest pressure palpitations. She denied any syncopal episodes. She denies any focal neurological weakness. ECG showed sinus rhythm with left bundle branch block. Labs shows hemoglobin 13.6, BUN 16, creatinine 0.7, 01/03 Blood pressure readings are much improved. 130/77, heart rate in the 70s, pulse ox 93% on room air. Patient denies having any chest pain no chest pressure, no shortness of breath. Repeat blood work reveals hemoglobin 14.6. Electrolytes are normal. Creatinine 0.79. PHYSICAL EXAMINATION Vital signs reviewed. Head: Normocephalic. Eyes: Sclerae nonicteric. Neck: Brisk carotid upstroke, no jugular venous distention. Lungs: Clear to auscultation. Heart: Regular rate and rhythm, S1-S2, no S3, no murmur or rub. Abdomen: Soft nontender, positive bowel sounds. Extremities: No edema, intact distal pulses. Neuro: Alert, oritented, no focal deficits. Detailed neuro exam was not performed. ASSESSMENT Essential hypertension, poorly controlled Dizziness, likely peripheral vertigo. Neurology rule out CVA Cardiac testing Echo shows EF 60-65, no significant valvular abnormality, no regional wall motion abnormality, no significant chamber size abnormality CT angio neck, mild intimal calcification bilaterally with no flow-limiting stenosis MRI brain, no evidence of acute ischemic stroke or acute findings notice PLAN Discontinue beta-glenn due to lbbb. Continue amlodipine 5 mg daily, losartan 100 mg daily Continue aspirin 81 mg, Zetia Recommend 14-day Holter monitor to be picked up from [facility] office at the time of discharge Patient is cleared for discharge home and will follow-up with Dr. Jason in 3 to 4 weeks. Nurse practitioner note has been reviewed, I agree with documented findings and plan of care. Patient was seen and examined. Objective - Vital Signs Vital signs: Vital Signs Temp 98 F 01/04/24 08:00 Pulse 70 01/04/24 11:28 Resp 16 01/04/24 11:28 BP 144/83 01/04/24 11:28 Pulse Ox 93 L 01/04/24 11:28 FiO2 Intake & Output 01/03/24 01/04/24 01/04/24 18:59 06:59 18:59 Intake Total 1260 170 660 Balance 1260 170 660 Weight 100.3 kg Intake: IV 10 Invasive Line 1 10 Intake, IV Titration 160 Amount Sodium Chloride 0.9% 1, 160 000 ml @ 20 mls/hr IV . Q24H [facility] Rx#:[id number] Oral 1260 660 Other: Voiding Method Toilet Toilet Toilet # Voids 2 1 2 # Bowel Movements 1 - Labs CBC & Chem 7: 01/04/24 08:06 01/04/24 08:06 Labs: Abnormal Lab Results - Last 24 Hours (Table) 01/04/24 01/04/24 Range/Units 08:06 08:06 Hct 46.2 H (34.0-46.0) % Glucose 183 H (74-99) mg/dL Microbiology - Last 24 Hours (Table) 01/02/24 09:00 Urine Culture - Final Urine,Voided
--- NOTE | 2024-01-04 13:56 | P.DS ---
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 Do you want consulting provider notified?: Yes 01/02/24 08:35 Consult Physician Routine Consulting Provider: Kamaljit Avila Consult Reason/Comments: Severe dizziness Do you want consulting provider notified?: Yes 01/02/24 09:05 Consult Physician Routine Consulting Provider: Julianne King Consult Reason/Comments: Rash on chest Do you want consulting provider notified?: Yes Primary care physician: Kelsey Hernandez [facility] Course: Diagnosis on discharge: Severe dizziness Evidence of urinary tract infection Uncontrolled blood pressure Rash on the chest between breast Underlying history of hypertension Underlying history of hyperlipidemia Underlying history of hypothyroidism Underlying history of gastroesophageal reflux disease Underlying history of osteoporosis Underlying history of osteoarthritis Underlying history of urinary incontinence Hospital course: mAy Tijerina, is an 83-year-old female who presented to [facility] emergency room with a chief complaint of severe dizziness, patient stated that she woke up on Tuesday morning with severe dizziness, and her symptom has been worsening since then, patient stated that she felt that she was falling backward, on Tuesday patient decided to come to emergency room for further evaluation. She was evaluated in the emergency room vital examination on presentation revealed a temperature of 98.3 pulse 64 respiration 16 blood pressure 190/72 pulse ox 96% on room air Laboratory data revealed a white blood count of 7.4 hemoglobin 14.7 platelet count 271 sodium 140 potassium 4.5 chloride 106 CO2 30 BUN 14 creatinine 0.83 calcium 10.4 urine analysis was positive for leukocyte esterase and 16 white blood cells and many bacteria. Testing in the emergency room revealed EKG done in the emergency room revealed sinus rhythm with left bundle branch block, CT scan of the brain revealed no acute intracranial process, with chronic appearing periventricular white matter ischemic changes. CT angiogram of the neck and brain revealed no flow-limiting stenosis in the bilateral carotid bifurcation, and normal [place]. Patient was admitted to medical floor for further evaluation and treatment Past medical history is significant for history of hypertension, history of hyperlipidemia, history of hypothyroidism, history of osteoarthritis, history of osteoporosis, history of gastroesophageal reflux disease, history of urinary incontinence, for which patient takes oxybutynin 10 mg daily, she is stating she has been on this medication for 4 years. On review of systems patient is alert and oriented x 3 in no apparent distress, there is no fever or chills no headache, no chest pain no shortness of breath no cough, no nausea or vomiting no abdominal pain no diarrhea no blood in the stools, she has frequency with urination and some urgency and mild incontinence, there is no weakness or numbness in any of the extremities, there is no change in vision speech or gait. On 01/03/2024 patient is alert and oriented x 3. Patient still reports some dizziness MRI of the brain has been ordered per neurology services patient remains on Rocephin for UTI nightstand cream has been ordered per ID for rash on chest. Blood pressure remains high 176/82. Temp 97.9, heart rate 59, respiratory rate 14, blood pressure 92 on room air. Patient denies chest pain. Patient denies nausea vomiting or diarrhea. Patient denies any urinary burning or frequency On 01/04/2024 patient is alert and oriented x 3. Patient eager to be DC'd home. MRI of the brain has been completed and was negative for any acute intracranial process extending up to degenerative or remote ischemic white matter microvascular disease. Patient will be DC'd home on Antivert, nystatin cream, Norvasc and Cozaar patient to follow-up with PCP and consulting providers for further management Patient Condition at Discharge: Stable Plan - Discharge Summary Discharge Rx Participant: No New Discharge Prescriptions: New Nystatin 100,000Unit/gm Cream [Mycostatin Cream] 1 applic TOPICAL BID 15 Days #100 each amLODIPine [Norvasc] 5 mg PO DAILY 30 Days #30 tab Meclizine [Antivert] 12.5 mg PO TID 10 Days #30 tab Losartan [Cozaar] 100 mg PO DAILY 30 Days #30 tab Continue Multivitamins, Thera [Multivitamin (formulary)] 1 tab PO DAILY Levothyroxine Sodium [Synthroid] 75 mcg PO DAILY Pantoprazole Sodium 40 mg PO BID [place]-3/Dha/Epa/Fish Oil [Fish Oil 500 mg Softgel] 1 cap PO BID Calcium Carbonate [Calcium] 600 mg PO BID Aspirin [Adult Low Dose Aspirin EC] 81 mg PO DAILY oxyBUTYnin chloride [Ditropan XL] 10 mg PO DAILY Magnesium Oxide [Magnesium] 500 mg PO DAILY Montelukast [Singulair] 10 mg PO HS Meloxicam [Mobic] 15 mg PO DAILY Letrozole [Femara] 2.5 mg PO DAILY Fexofenadine HCl [Kristy Allergy] 180 mg PO DAILY Cholecalciferol [Vitamin D3 (25 Mcg = 1000 Iu)] 25 mcg PO DAILY Glucosa Schultz 2Kcl/Chondroitin Schultz [Glucosamine-Chondroitin Cap] 2 cap PO HS Fiber Well 200mg 2 cap PO HS Fluticasone/Umeclidin/Vilanter [Trelegy Ellipta 200-62.5-25] 1 puff INHALATION Q2D Risedronate Sodium [Actonel] 35 mg PO MO Ezetimibe [Zetia] 10 mg PO DAILY Discontinued Losartan [Cozaar] 50 mg PO DAILY Metoprolol Tartrate 25 mg PO HS Fluticasone/Vilanterol [Breo Ellipta 200-25 Mcg Inhaler] 1 puff INHALATION Q2D Discharge Medication List Aspirin [Adult Low Dose Aspirin EC] 81 mg PO DAILY 06/07/18 [History] Calcium Carbonate [Calcium] 600 mg PO BID 06/07/18 [History] Levothyroxine Sodium [Synthroid] 75 mcg PO DAILY 06/07/18 [History] Multivitamins, Thera [Multivitamin (formulary)] 1 tab PO DAILY 06/07/18 [History] [place]-3/Dha/Epa/Fish Oil [Fish Oil 500 mg Softgel] 1 cap PO BID 06/07/18 [History] Pantoprazole Sodium 40 mg PO BID 06/07/18 [History] oxyBUTYnin chloride [Ditropan XL] 10 mg PO DAILY 01/16/19 [History] Cholecalciferol [Vitamin D3 (25 Mcg = 1000 Iu)] 25 mcg PO DAILY 08/20/22 [History] Fexofenadine HCl [Kristy Allergy] 180 mg PO DAILY 08/20/22 [History] Letrozole [Femara] 2.5 mg PO DAILY 08/20/22 [History] Magnesium Oxide [Magnesium] 500 mg PO DAILY 08/20/22 [History] Meloxicam [Mobic] 15 mg PO DAILY 08/20/22 [History] Montelukast [Singulair] 10 mg PO HS 08/20/22 [History] Risedronate Sodium [Actonel] 35 mg PO MO 08/20/22 [History] Ezetimibe [Zetia] 10 mg PO DAILY 01/01/24 [History] Fiber Well 200mg 2 cap PO HS 01/01/24 [History] Fluticasone/Umeclidin/Vilanter [Trelegy Ellipta 200-62.5-25] 1 puff INHALATION Q2D 01/01/24 [History] Glucosa Schultz 2Kcl/Chondroitin Schultz [Glucosamine-Chondroitin Cap] 2 cap PO HS 01/01/24 [History] Losartan [Cozaar] 100 mg PO DAILY 30 Days #30 tab 01/04/24 [Rx] Meclizine [Antivert] 12.5 mg PO TID 10 Days #30 tab 01/04/24 [Rx] Nystatin 100,000Unit/gm Cream [Mycostatin Cream] 1 applic TOPICAL BID 15 Days #100 each 01/04/24 [Rx] amLODIPine [Norvasc] 5 mg PO DAILY 30 Days #30 tab 01/04/24 [Rx] Follow up Appointment(s)/Referral(s): Yonatan Jason MD [Medical Doctor] - 4 Weeks Kelsey Hernandez MD [Primary Care Provider] - 1-2 days Activity/Diet/Wound Care/Special Instructions: 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 Discharge Disposition: HOME SELF-CARE
[2024-01-04 16:10] VITALS: BP 159/80; PULSE 67; TEMP 97.7
[2024-01-09] MEDS ORDERED: RISEDRONATE SODIUM 35 MG PO SCH (07:00)
== END 2024-01-04 17:49 | disposition home or self-care (01) | DRG 690 ==
LOC: EC 14:05 → 3SCARD 15:39
PROVIDERS: ADMIT Internal Medicine; ATTEND Internal Medicine
DX: N39.0 Urinary tract infection, site not specified (principal); I16.0 Hypertensive urgency; H81.399 Other peripheral vertigo, unspecified ear; E03.9 Hypothyroidism, unspecified; B37.2 Candidiasis of skin and nail; E78.00 Pure hypercholesterolemia, unspecified; I10 Essential (primary) hypertension; M81.0 Age-related osteoporosis without current pathological fracture; N32.81 Overactive bladder; G89.29 Other chronic pain; I44.7 Left bundle-branch block, unspecified; J44.9 Chronic obstructive pulmonary disease, unspecified; Z96.651 Presence of right artificial knee joint; Z85.3 Personal history of malignant neoplasm of breast; Z87.440 Personal history of urinary (tract) infections; Z87.891 Personal history of nicotine dependence; Z88.2 Allergy status to sulfonamides; Z79.1 Long term (current) use of non-steroidal anti-inflammatories (NSAID); Z79.811 Long term (current) use of aromatase inhibitors; Z79.82 Long term (current) use of aspirin; Z79.890 Hormone replacement therapy; Z79.51 Long term (current) use of inhaled steroids; Z79.899 Other long term (current) drug therapy; Z90.710 Acquired absence of both cervix and uterus
CPT/HCPCS: 36415; 70450; 70496; 70498; 70551; 80048; 80053; 81001; 85025; 87086; 93005; 93306; 96365; 96372; 96375; 99285

== ENCOUNTER → 2024-03-12 | Outpatient (CLI) | payer MEDICARE ==
--- NOTE | 2024-03-12 12:52 | MM ---
Reason for Exam: Screening (asymptomatic). Last screening mammogram was performed 12 month(s) ago. Patient History: Menarche at age 13. First Full-Term at age 18. Hysterectomy at age 40. Postmenopausal. Breast cancer, left, age 78. Hormonal Contraceptives for 1 year from age 22 until age 23. 2019, Lumpectomy on the Left side. 01/23/2019, Malignant Core Biopsy on the left side. 01/23/2019, Malignant Core Biopsy on the left side. 06/05/2008, Benign Cyst Aspiration on the right side. 2019, Radiation Therapy on the left side. Prior Study Comparison: 10/24/2020 Bilateral MG diagnostic mammo w CAD FELIX - 2, [facility]. 03/08/2022 Bilateral MG 3D screening mammo w/cad, [facility]. 03/09/2023 Bilateral MG 3D screening mammo w/cad, [facility]. Tissue Density: There are scattered areas of fibroglandular density. Analyzed By CAD. Overall Assessment: Benign, BI-RAD 2 Management: Screening Mammogram of both breasts in 1 year. Electronically signed and approved by: Adam Hernandez M.D.
== END | disposition home or self-care (01) ==
LOC: RADMAMWWP 11:12
PROVIDERS: ATTEND Internal Medicine Hematology & Oncology
DX: Z12.31 Encounter for screening mammogram for malignant neoplasm of breast (principal); Z78.0 Asymptomatic menopausal state; Z85.3 Personal history of malignant neoplasm of breast; R92.323 Mammographic fibroglandular density, bilateral breasts
CPT/HCPCS: 77063; 77067